=== PATIENT | male | born 1950 | race Caucasian/White ===

== ENCOUNTER 2017-05-02 07:46 | Outpatient (CLI) | payer MEDICARE, BC ==
[~2017-05-02] VITALS: Ht 185.4 cm; Wt 81.8 kg
--- NOTE | ~2017-05-02 | HEMODYNAMI ---
PATIENT:RACIEL MORRISON MEDICAL RECORD: [id number] : 46 LOCATION:[facility] ADMISSION DATE: 05/02/17 Generatedon:05/02/201710:23 Patient name: RACIEL MORRISON Patient #: [id number] SSN: : 1950 Date of study: 05/02/2017 Page: Of Hemodynamic Procedure Report Patient Data Patient Demographics Procedure consent was obtained First Name: RACIEL Gender: Male Last Name: PRINCE : 1950 Patient #: [id number] Age: 66 year(s) Race: Unknown Additional ID: [id number] Contact details [address]: [address] [place] [address] State: [place] City: [place] Zip code: [address] Admission Admission Data Admission Date: 05/02/2017 Admission Time: 7:46 Admit Source: Other Procedure Procedure Types Cath Procedure Diagnostic Procedure LHC LHC w/Coronaries PCI Procedure Coronary Stent Initial Miscellaneous Procedures Moderate Sedation up to 30 minutes Procedure Description Procedure Date Procedure Date: 05/02/2017 Procedure Start Time: 9:59 Procedure End Time: 10:22 Procedure Staff Name Function Venkatesh Yap MD Performing Physician Aleksandar Lara RT Scrub Gloria Simon RN Nurse Ra Morton RT Monitor Procedure Data Cath Procedure Fluoroscopy Diagnostic fluoroscopy Total fluoroscopy Time: 3.5 time: 3.5 min min Diagnostic fluoroscopy Total fluoroscopy dose: 669 dose: 669 mGy mGy Contrast Material Contrast Material Type Amount (ml) Isovue 300 91 Entry Location Entry Primary Successful Side Size Upsize Upsize Entry Closure [place] ccessful Closure Location (Fr) 1 (Fr) 2 (Fr) Remarks Device Remarks Radial Right 5 Fr Mechanical artery Compression Estimated blood loss: 10 ml Diagnostic catheters Device Type Used For End Catheter Placement Diagnostic Terumo 5Fr Procedure [place] 110cm catheter Diagnostic Infinity 5Fr Procedure AR 2 MOD catheter Procedure Complications No complications Procedure Medications Medication Administration Route Dosage Oxygen NC 2 l/min Lidocaine 2% added to field 20 Heparin Flush Bag added to field 2 bags (1000units/500ml NS) 0.9% NaCl I.V. 100 ml/hr Benadryl I.V. 50 mg Versed I.V. 2 mg Fentanyl I.V. 100 mcg Radial Cocktail I.A. 1 syringe (Verapomil 2mg/Nitro 400mcg/Heparin 1500units) Versed I.V. 0.5 mg Fentanyl I.V. 25 mcg Heparin Bolus I.V. 4000 units Hemodynamics Rest Heart Rate: 72 (bpm) Pressure Samples Time Site Value (mmHg) Purpose Heart Use Rate(bpm) 10:07 AO 128/76(99) Snapshot 62 Snapshots Pre Cath Intra NCS Post Cath Vital Signs Time Heart Resp SPO2 etCO2 LE4vdil NIBP (mmHg) Rhythm Pain Sedation Rate (ipm) (%) (mmHg) (mmHg) Status Level (bpm) 9:50:22 61 16 99 0 0 143/91(134) NSR 0 (11) 10(A) , No pain 9:54:39 59 17 100 0 0 134/84(100) NSR 0 (11) 10(A) , No pain 9:58:53 60 16 96 0 0 133/82(99) NSR 0 (11) 9(A) , No pain 10:03:06 63 18 95 0 0 126/76(104) NSR 0 (11) 9(A) , No pain 10:07:17 61 18 95 0 0 120/79(112) NSR 0 (11) 9(A) , No pain 10:11:26 71 15 97 0 0 104/73(84) NSR 0 (11) 9(A) , No pain 10:15:32 63 16 95 0 0 113/70(84) NSR 0 (11) 10(A) , No pain 10:19:40 63 17 94 0 0 114/71(85) NSR 0 (11) 10(A) , No pain Medications Time Medication Route Dose Verified Delivered Reason Note s Effectiveness by by 9:48:46 Oxygen NC 2 l/min Venkatesh Castro used for Marely Simon mason helper 9:48:53 Lidocaine 2% added 20ml Venkatesh Riddle for local to vial Marely Yap MD anesthetic field 9:49:00 Heparin Flush added 2 bags Venkatesh Riddle used for Bag to Marely Yap MD procedure (1000units/500ml field NS) 9:49:09 0.9% NaCl I.V. 100 Venkatesh Castro Per physician ml/hr Marely Simon RN 9:49:18 Benadryl I.V. 50 mg Venkatesh Castro used for Marely Simon RN procedure 9:54:12 Versed I.V. 2 mg Venkatesh Castro for sedation Marely Simon RN 9:54:18 Fentanyl I.V. 100 mcg Venkatesh Castro for sedation Marely Simon RN 10:07:07 Versed I.V. 0.5 mg Venkatesh Castro for sedation Marely Simon RN 10:07:11 Fentanyl I.V. 25 mcg Venkatesh Castro for sedation Marely Simon RN 10:07:16 Radial Cocktail I.A. 1 Venkatesh Riddle for (Verapomil syringe Marely Yap MD vasodilation 2mg/Nitro 400mcg/Heparin 1500units) 10:12:04 Heparin Bolus I.V. 4000 Venkatesh Castro for veri fied units Marely Simon RN anticoagulation with dr yap Procedure Log Time Note 9:20:18 Gloria Simon RN sent for patient. Start room use. 9:34:48 Informed consent obtained and on chart 9:34:54 Admit Source: Other 9:34:57 Time tracking: Regular hours 9:35:03 Plan of Care:Hemodynamics will remain stable., Cardiac rhythm will remain stable., Comfort level will be maintained., Respiratory function will remain adequate., Patient/ family verbilizes understanding of procedure., Procedure tolerated without complication., Recovers from procedure without complications.. 9:35:31 H&P Date Dictated: 04/09/2017 Within 30 days and on chart., H&P Addendum completed by physician on day of procedure. (MUST COMPLETE FOR ALL OUTPATIENTS). 9:39:10 Patient received from Pre/Post Procedure Room to CCL 1 Alert and oriented. Tansferred to table in Supine position. 9:39:11 Warm blankets applied, and aicha hugger turned on for patient comfort. 9:39:15 Correct patient and procedure confirmed by team. 9:39:15 ECG and BP/O2 sat monitors applied to patient. 9:39:17 Pre-procedure instructions explained to patient. 9:39:18 Pre-op teaching completed and patient verbalized understanding. 9:39:19 Family in waiting room. 9:39:21 Patient NPO since Midnight. 9:48:46 Oxygen 2 l/min NC was administered by Gloria Simon RN; used for procedure; 9:48:53 Lidocaine 2% 20ml vial added to field was administered by Venkatesh Yap MD; for local anesthetic; 9:49:00 Heparin Flush Bag (1000units/500ml NS) 2 bags added to field was administered by Venkatesh Yap MD; used for procedure; 9:49:09 0.9% NaCl 100 ml/hr I.V. was administered by Gloria Simon RN; Per physician; 9:49:18 Benadryl 50 mg I.V. was administered by Gloria Simon RN; used for procedure; 9:49:22 Vital chart was started 9:52:33 Baseline sample Acquired. 9:52:38 Rhythm: sinus rhythm 9:52:39 Full Disclosure recording started 9:52:43 Is the patient allergic to Iodine/contrast media? No. 9:52:47 Is patient on blood thinner?Yes 9:52:49 ACC The patient was administered the following blood thiners within the last 24 hours: ACCPlavix 9:52:53 Patient diabetic? No. 9:52:56 Previous problem with sedation/anesthesia? No ? 9:52:59 Snore? Yes 9:53:00 Sleep apnea? No 9:53:01 Deviated septum? No 9:53:02 Opens mouth fully? Yes 9:53:03 Sticks out tongue? Yes 9:53:05 Airway obstruction? No ? 9:53:06 Dentures? No ? 9:53:08 Pre procedure: right dorsailis pedis pulse 1+ Palpable, but thready & weak; easily obliterated 9:53:10 Modified Kev's test Ulnar < 7 seconds 9:53:13 Patient pain scale 0/10 ?. 9:53:20 IV patent on arrival in left forearm with 0.9% NaCl at [facility]. 9:53:22 Lab results completed and on chart. 9:53:24 Right Radial & Right Groin area was prepped with chlora-prep and draped in sterile fashion 9:53:26 Alarms reviewed by R. N. 9:53:27 Sharps counted by scrub and verified by RDeng 9:53:29 --------ALL STOP TIME OUT------ 9:53:30 Final Timeout: patient, procedure, and site verified with staff and physician. All members of the team are in agreement. 9:53:34 Right Radial & Right Groin site verified by team. 9:53:36 Physical assessment completed. ASA score P 2 - A patient with mild systemic disease as per Venkatesh Yap MD. 9:53:39 Sedation plan: IV Moderate Sedation Versed, Fentanyl 9:54:12 Versed 2 mg I.V. was administered by Gloria Simon RN; for sedation; 9:54:18 Fentanyl 100 mcg I.V. was administered by Gloria Simon RN; for sedation; 9:56:28 Use device set Radial Dx 9:56:30 Tegaderm 4 x 4 opened to sterile field. 9:56:31 Acist Manifold opened to sterile field. 9:56:32 Acist Hand Control opened to sterile field. 9:56:33 Acist Syringe opened to sterile field. 9:56:33 Medline Cath Pack opened to sterile field. 9:56:33 Bag Decanter opened to sterile field. 9:56:34 Terumo 6Fr Slender Glidesheath opened to sterile field. 9:56:34 St Ruiz 260cm J .035 wire opened to sterile field. 9:56:34 MBrace Wrist Support opened to sterile field. 9:59:26 Procedure started. 9:59:30 Local anesthetic to right radial artery with Lidocaine 2% by Venkatesh Yap MD.INITIAL ACCESS ONLY 10:06:17 A 5 Fr sheath was inserted into the Right Radial artery 10:06:31 A Diagnostic Terumo 5Fr [place] 110cm catheter was advanced over the wire and used for Procedure. 10:07:05 LV angiography performed. 10:07:06 LV gram done using PECK 10:07:07 Versed 0.5 mg I.V. was administered by Gloria Simon RN; for sedation; 10:07:11 Fentanyl 25 mcg I.V. was administered by Gloria Simon RN; for sedation; 10:07:16 Radial Cocktail (Verapomil 2mg/Nitro 400mcg/Heparin 1500units) 1 syringe I.A. was administered by Venkatesh Yap MD; for vasodilation; 10:07:16 EF : 55 % 10:07:24 Injector settings: Ml/sec: 7, Volume: 15, 10:07:30 LCA angiography performed. 10:09:09 [employer] BasixCompak Inflation Kit opened to sterile field. 10:09:10 Ochoa Whisper J 300cm 0.014 guide wire opened to sterile field. 10:09:15 Catheter exchanged over wire. 10:09:26 A Diagnostic Infinity 5Fr AR 2 MOD catheter was advanced over the wire and used for Procedure. 10:10:45 RCA angiography performed. 10:10:56 Catheter exchanged over wire. 10:11:11 Medtronic Launcher 6Fr AR 2.0 guide catheter opened to sterile field. 10:11:26 6 Fr AR 2 guide catheter was inserted over the wire 10:11:45 Study PCI Site: [place] dRCA has 70% stenosis. 10:11:48 ACC Pre-intervention RANJEET Flow is 3. 10:12:04 Heparin Bolus 4000 units I.V. was administered by Gloria Simon RN; for anticoagulation; verified with dr yap 10:13:07 Whisper wire advanced. 10:14:45 Wire advanced across lesion. 10:15:20 Inflation Number: 1 A [facility] Integr[facility] 4.0 X 18 stent was prepped and advanced across the Dist RCA. The stent was deployed at 13 PAPA for 0:10 (min:sec). 10:15:35 ACC Post-intervention RANJEET Flow is 3. 10:15:37 Stent catheter was removed intact over wire. 10:15:38 Wire removed. 10:15:38 Guide catheter removed. 10:15:55 Terumo TR Band Standard opened to sterile field. 10:16:15 Sheath removed intact; hemostasis achieved with Mechanical Compression to the Right Radial artery. 10:16:17 Procedure ended.(Physican Out) 10:16:40 Fluoroscopy time 03.50 minutes. 10:16:44 Fluoroscopy dose: 669 mGy 10:16:44 Flurop Dose total: 669 10:16:50 Contrast amount:Isovue 300 91ml. 10:16:51 Sharps counted by scrub and verified by R.N. 10:16:55 TR band inflated with 12cc of air. 10:16:56 Insertion/operative site no bleeding no hematoma. 10:16:59 Post Procedure Pulses reassessed and unchanged 10:17:01 Post-procedure physical assessment completed. ASA score P 2 - A patient with mild systemic disease as per Venkatesh Yap MD. 10:17:04 Post procedure rhythm: unchanged. 10:17:06 Estimated blood loss: 10 ml 10:17:08 Post procedure instruction explained to patient.Patient verbalizes understanding. 10:17:09 Patient needs reinforcement of post procedure teaching. 10:17:16 Procedure type changed to Cath procedure, Diagnostic procedure, LHC, LHC w/Coronaries, PCI procedure, Coronary Stent Initial, Miscellaneous Procedures, Moderate Sedation up to 30 minutes 10:17:27 Procedure Complication : No complications 10:22:14 Procedure and supply charges have been captured, reviewed, submitted and are correct. 10:22:14 Vital chart was stopped 10:22:15 See physician's report for complete and final results. 10:22:17 Report given to Pre/Post Procedure Room. 10:22:21 Patient transfered to Pre/Post Procedure Room with Stretcher. 10:22:23 Procedure ended. 10:22:23 Full Disclosure recording stopped 10:22:27 End room use (Document Last) Intervention Summary Intervention Notes Time ActionType Lesion and Equipment Action# Pressure Duration Attributes Used 10:15:20 Place stent Dist RCA Medtronic 1 13 00:10 Integrity 4.0 X 18 stent Device Usage Item Name Manufacture Quantity Catalog Hospital Part Current Minimal Lot# / Number Charge Number Stock Stock Serial# Code Tegaderm 4 3M 1 [id number] 723928 265464 5 x 4 Acist Acist 1 82304 753897 276979 187913 5 Manifold [employer] Inc Acist Hand Acist 1 77765 613648 110583 134478 5 Control Medical Systems Inc Acist Acist 1 52401 866181 440057 528141 20 Syringe Medical Systems Inc Medline Cardinal 1 [id number] 312227 40931 122559 5 Cath Pack Health Bag Microtek 1 2001S 589132 99243 959494 5 [employer] Terumo 6Fr Terumo 1 [id number] 822474 169308 204674 [address] St Ruiz 1 945936 127353 403026 346401 30 260cm J .035 wire MBrace Advanced 1 [id number] 059743 08797 740540 5 Wrist Vascular Support Dynamics Diagnostic Terumo 1 47-8321 675068 504257 996031 5 Terumo 5Fr [place] 110cm catheter Merit Merit 1 [id number] 163591 394978 017006 15 BasixCompak Medical Inflation Kit Ochoa Ochoa 1 [id number] 793915 158590 272427 5 Whisper J Vascular 300cm 0.014 guide wire Diagnostic Cardinal 1 [id number] 067663 142248 342421 20 Infinity [employer] 5Fr AR 2 MOD catheter Medtronic Medtronic 1 [id number] 330960 69583 882701 1 Launcher 6Fr AR 2.0 guide catheter Medtronic Medtronic 1 [id number] 842864 752015 2 [id number] Integrity 4.0 X 18 stent Terumo TR Terumo 1 [id number] 011635 702908 293663 40 Band Standard Signature Audit [place] Stage Time Signature Unsigned Intra-Procedure 05/02/2017 Ra Morton 10:23:06 AM RT(R) Signatures Monitor : Ra Morton RT Signature : Date : Time : [id number] [place] [address]
[~2017-05-02 07:46] MED LIST: BAYER CHEWABLE81 MG PO; HYTRIN5 MG PO; PLAVIX75 MG PO; PRAVACHOL40 MG PO; PRINIVIL20 MG PO; WELLBUTRIN75 MG PO; ZIAC 5/6.25 MG1 TAB PO
[2017-05-02] MEDS ORDERED: TOPROL XL50 MG PO (07:58)
[2017-05-02 08:05] VITALS: BP 132/80; Ht 185.4 cm; Wt 81.8 kg
[2017-05-02 08:29] LABS: ANION GAP 10.3 mmol/L (8-16); CALCIUM 8.5 mg/dL (8.5-10.1); CARBON DIOXIDE 28.2 mmol/L (21.0-32.0); CREATININE - SERUM 1.2 mg/dL (0.6-1.3); POTASSIUM - SERUM 3.5 mmol/L (3.5-5.1)
[2017-05-02 08:52] LABS: BASOPHILS 0.4 % (0-2); EOSINOPHILS 2.1 % (0-7); HEMATOCRIT 42.7 % (42.0-54.0); HEMOGLOBIN 14.7 g/dL (13.5-17.5); LYMPHOCYTES 15.2 % (15-50); MCH 29.2 pg (26.0-34.0); MCHC 34.4 g/dL (31.0-37.0); MCV 84.7 fL (80.0-100.0); MEAN PLATELET VOLUME 10.8 fL (7.4-10.4); MONOCYTES 8.4 % (2-11); NEUTROPHILS 73.9 % (40-80); PLATELET COUNT 137 10x3/uL (130-400); RBC 5.04 10x6/uL (4.20-6.10); RDW 12.6 % (11.5-14.5); WBC 4.7 10x3/uL (4.8-10.8)
--- NOTE | 2017-05-02 10:50 | NUR ---
2L NC, NO RESP DISTRESS. RIGHT WRIST TR BAND IN PLACE, NO BLEEDING OR HEMATOMA NOTED. SB @ 58 ON MONITOR. NO C/O CHEST PAIN OR NAUSEA. SPEAKING WITH FAMILY AT BEDSIDE. CALL LIGHT WITHIN REACH.
--- NOTE | 2017-05-02 11:20 | NUR ---
2L NC, NO RESP DISTRESS NOTED. RIGHT WRIST TR BAND CDI, NO BLEEDING OR HEMATOMA NOTED. NO C/O CHEST PAIN OR NAUSEA. VSS. WILL CONTINUE TO MONITOR.
--- NOTE | 2017-05-02 12:00 | NUR ---
1200 RR EVEN AND UNLABORED ON O2 AT 2 LPM VIA NC. TR BAND IS CDI, NO BLEEDING OR HEMATOMA NOTED. PT DENIES ANY C/O CHEST PAIN; VSS. AT BEDSIDE. CALL LIGHT IN REACH.
--- NOTE | 2017-05-02 12:30 | NUR ---
ROOM AIR, NO RESP DISTRESS NOTED. VSS. RIGHT WRIST TR BAND CDI, NO BLEEDING OR HEMATOMA NOTED. VSS. CALL LIGHT WITHIN REACH.
--- NOTE | 2017-05-02 13:21 | NUR ---
2CC OF AIR REMOVED FROM TR BAND, NO BLEEDING NOTED. VSS. NO C/O AT THIS TIME.
--- NOTE | 2017-05-02 13:38 | NUR ---
3CC OF AIR REMOVED FROM TR BAND, NO BLEEDING NOTED.
--- NOTE | 2017-05-02 14:00 | NUR ---
2CC OF AIR REMOVED FROM TR BAND, NO BLEEDING NOTED.
--- NOTE | 2017-05-02 14:11 | NUR ---
LEFT HAND PIV D/C'D WITH CATHETER INTACT, BAND AID TO SITE. UP TO BEDSIDE TO GET DRESSED.
--- NOTE | 2017-05-02 14:27 | NUR ---
REMAINING AIR REMOVED FROM TR BAND, DRESSING TO SITE. DISCHARGE INSTRUCTIONS GIVEN, VERBALIZED UNDERSTANDING.
--- NOTE | 2017-05-02 14:35 | NUR ---
TAKEN OUT VIA WHEELCHAIR BY CATH CLINICAL STAFF PHARMACIST. LEFT FACILITY WITH AND ALL PERSONAL BELONGINGS.
--- NOTE | 2017-05-09 09:42 | OP ---
PATIENT NAME: RACIEL MORRISON MEDICAL RECORD: [id number] :46 LOCATION:[facility] ADMISSION DATE: SURGEON: LOLITA WALKER MD DATE OF OPERATION: 05/02/2017 PROCEDURES: 1. PTCA stent RCA. 2. Left heart catheterization. 3. Selective coronary angiography. 4. Left ventriculogram. INDICATION: Angina and coronary artery disease. PROCEDURE IN DETAIL: After informed consent was obtained and after detailed explanation of risks, benefits as well as alternative therapies, the patient elected to proceed with angiogram and angioplasty. The right radial area was prepped and draped in normal sterile fashion. The right radial artery was cannulated via modified Seldinger technique with placement of 6-Mongolian sheath. All catheters exchanged through this sheath. FINDINGS: The left ventriculogram was performed in standard 30-degree PECK view, reveals good cardiac wall motion throughout all segments. Overall ejection fraction estimated 60%. SELECTIVE CORONARY ANGIOGRAPHY: 1. Left main is with no significant angiographic disease. 2. Left anterior descending has moderate irregularities, but no flow-limiting stenosis. 3. The left circumflex has a previously placed stent. This is widely patent. This takes off the bifurcation of the first obtuse marginal. First obtuse marginal is 80% stenosis at the site of the previously placed stent. 4. Right coronary is large dominant structure with 70+ percent stenosis distally. PTCA STENT OF THE RIGHT CORONARY: The stent used was 4.0 x 18 mm Integrity. Result was 0% residual stenosis. OVERALL IMPRESSION: Successful percutaneous transluminal coronary angioplasty stent of the right coronary artery going from 70+ percent initial stenosis to 0% residual stenosis. If any further angina persists, would proceed with transcatheter revascularization of the first obtuse marginal. TRANSINT:[id number] Voice Confirmation ID: [id number] DOCUMENT ID: [id number] LOLITA WALKER MD at 0942 CC: [id number] DICTATION DATE: 05/02/17 1020 PRODUCTION COST ESTIMATOR: 05/02/17 1451 DEP CLI 05/02/17 [address] [place] [address]
== END 2017-05-02 14:35 | disposition home or self-care (01) ==
LOC: D.CATH 07:46
PROVIDERS: Internal Medicine Interventional Cardiology
DX: I25.10 Atherosclerotic heart disease of native coronary artery without angina pectoris (principal); R94.30 Abnormal result of cardiovascular function study, unspecified; I10 Essential (primary) hypertension; R00.1 Bradycardia, unspecified; Z01.812 Encounter for preprocedural laboratory examination

== ENCOUNTER 2017-05-26 09:33 | Emergency (ER) | payer MEDICARE, BC ==
[2017-05-02 08:05] VITALS: BMI 23.8
[~2017-05-26 09:33] MED LIST changes: +TOPROL XL50 MG PO
== END 2017-05-26 10:47 | disposition home or self-care (01) ==
LOC: D.ER 09:33
DX: R51 Headache (principal); I10 Essential (primary) hypertension

== ENCOUNTER → 2017-07-30 17:15 | Outpatient (CLI) | payer MEDICARE, BC ==
[2017-05-02 08:05] VITALS: BMI 23.8
[2017-07-30 19:42] LABS: CHOL - HDL RATIO 2.3 ratio (2.3-4.9); LDL-HDL RATIO 1.1 ratio (1.5-3.5)
== END | disposition home or self-care (01) ==
LOC: D.LABREF 17:15
PROVIDERS: Internal Medicine Interventional Cardiology
DX: E78.5 Hyperlipidemia, unspecified (principal)

== ENCOUNTER → 2018-04-09 16:48 | Outpatient (CLI) | payer MEDICARE, BC ==
[2017-05-02 08:05] VITALS: BMI 23.8
[~2018-04-09 16:48] MED LIST changes: +BUPROPION XL300 MG PO; +INDERAL LA80 MG PO; +LEVAQUIN250 MG PO; +LOSARTAN POTASS25 MG PO; +NORCO-7.5 PO; -WELLBUTRIN75 MG PO
[2018-04-09 17:22] LABS: CHOL - HDL RATIO 4.5 ratio (2.3-4.9); LDL-HDL RATIO 3.1 ratio (1.5-3.5)
== END | disposition home or self-care (01) ==
LOC: D.LABREF 16:48
PROVIDERS: Internal Medicine Interventional Cardiology
DX: E78.5 Hyperlipidemia, unspecified (principal)

== ENCOUNTER 2018-05-04 07:25 | Outpatient (CLI) | payer MEDICARE, BC ==
[~2018-05-04] VITALS: Ht 185.4 cm; Wt 84.1 kg
--- NOTE | ~2018-05-04 | HEMODYNAMI ---
PATIENT:RACIEL MORRISON MEDICAL RECORD: [id number] : 46 LOCATION:D.CAT ADMISSION DATE: 05/04/18 Generatedon:05/04/20189:58 Patient name: RACIEL MORRISON Patient #: [id number] SSN: : 1950 Date of study: 05/04/2018 Page: Of Hemodynamic Procedure Report Patient Data Patient Demographics Procedure consent was obtained First Name: RACIEL Gender: Male Last Name: PRINCE : 1950 Patient #: [id number] Age: 67 year(s) Race: Unknown Additional ID: [id number] Contact details [address]: [address] [place] [address] State: [place] City: [place] Zip code: [address] Past Medical History Allergies: No known allergies Admission Admission Data Admission Date: 05/04/2018 Admission Time: 7:25 Admit Source: Other Height (in.): 73 BSA: 2.08 (m2) Height (cm.): 185.42 BMI: 24.43 (kg/m2) Weight (lbs.): 185.19 Weight (kg.): 84 Lab Results Lab Result Date: 05/04/2018 Lab Result Time: 7:45 Biochemistry Name Units Result Min Max BUN mg/dl 21 --(----)-* 7 18 Creatinine mg/dl 1 --(--*-)-- 0.6 1.3 CBC Name Units Result Min Max Hematocrit % 40.2 -*(----)-- 42 54 Hemoglobin g/dl 14.3 --(*---)-- 13.5 17.5 Procedure Procedure Types Cath Procedure Diagnostic Procedure [facility] w/Coronaries FFR/IVUS Intra-Coronary IVUS Initial Sedation Charges Moderate Sedation up to 15 minutes PCI Procedure Coronary Stent Coronary Stent Initial Procedure Description Procedure Date Procedure Date: 05/04/2018 Procedure Start Time: 9:34 Procedure End Time: 9:57 Procedure Staff Name Function Venkatesh Yap MD Performing Physician Aleksandar Lara RT Monitor Ruthie Gomez RT Scrub Claudio Collazo RN Nurse Procedure Data Cath Procedure Fluoroscopy Diagnostic fluoroscopy Total fluoroscopy Time: 6.3 time: 6.3 min min Diagnostic fluoroscopy Total fluoroscopy dose: dose: 338.09 mGy 338.09 mGy Contrast Material Contrast Material Type Amount (ml) Isovue 300 117 Entry Location Entry Primary Successful Side Size Upsize Upsize Entry Closure [place] ccessful Closure Location (Fr) 1 (Fr) 2 (Fr) Remarks Device Remarks Radial Right 6 Fr Mechanical artery Short Compression Estimated blood loss: 10 ml Diagnostic catheters Device Type Used For End Catheter Placement DIAGNOSTIC [place] 110cm 5 Procedure Fr catheter ([id number]) DIAGNOSTIC AR 2 MOD 5 Fr Procedure catheter ([id number]) Procedure Complications No complications Procedure Medications Medication Administration Route Dosage 0.9% NaCl I.V. 100 ml/hr Oxygen etCO2 Nasal cannula 2 l/min Heparin Flush Bag added to field 2 bags (1000units/500ml NS) Lidocaine 2% added to field 20 Radial Cocktail added to field 1 syringe (Verapomil 2mg/Nitro 400mcg/Heparin 1500units) Versed I.V. 1 mg Fentanyl I.V. 50 mcg Radial Cocktail I.A. 1 syringe (Verapomil 2mg/Nitro 400mcg/Heparin 1500units) Versed I.V. 1 mg Fentanyl I.V. 50 mcg Heparin Bolus I.V. 4000 units Hemodynamics Rest BSA: 2.08 (m2) HGB: 14.3 (g/dl) O2 Consumption: Estimated: 231.16 (ml/min) O2 Co nsumption indexed: Estimated:111.13 (ml/min/m) Heart Rate: 58 (bpm) Snapshots Pre Cath Intra NCS Post Cath Vital Signs Time Heart Resp SPO2 etCO2 NIBP Rhythm Pain Sedation Rate (ipm) (%) (mmHg) (mmHg) Status Level (bpm) 9:11:47 57 15 93 0 114/73(89) NSR 0 (11) 10(A) , No pain 9:16:00 55 19 92 0 107/72(85) NSR 0 (11) 10(A) , No pain 9:20:11 58 14 92 0 103/71(88) NSR 0 (11) 10(A) , No pain 9:24:20 56 15 92 0 111/71(84) NSR 0 (11) 10(A) , No pain 9:28:28 64 14 94 28.6 113/71(89) NSR 0 (11) 9(A) , No pain 9:32:40 55 12 98 39.8 109/69(85) NSR 0 (11) 9(A) , No pain 9:36:54 81 12 98 0 105/61(74) NSR 0 (11) 9(A) , No pain 9:39:32 66 14 92 38.4 97/60(69) NSR 0 (11) 10(A) , No pain 9:43:39 61 14 92 37.6 102/64(79) NSR 0 (11) 10(A) , No pain 9:47:51 60 15 92 38.4 103/62(86) NSR 0 (11) 10(A) , No pain 9:52:01 57 16 96 39.1 106/65(77) NSR 0 (11) 10(A) , No pain 9:56:11 55 12 97 36.9 102/63(82) NSR 0 (11) 10(A) , No pain Medications Time Medication Route Dose Verified Delivered Reason Note s Effectiveness by by 9:09:15 0.9% NaCl I.V. 100 Claudio Claudio Per physician ml/hr Zay Collazo RN 9:09:26 Oxygen etCO2 2 l/min Claudio Claudio Per physician Nasal Zay Collazo cannula RN 9:09:38 Heparin Flush added 2 bags Claudio Claudio used for Bag to Lorigan Zay procedure (1000units/500ml [facility] RN NS) 9:10:13 Lidocaine 2% added 20ml Claudio Claudio used for to vial Lorigan Lorigan procedure [facility] RN 9:10:34 Radial Cocktail added 1 Claudio Claudio used for (Verapomil to syringe Lorigan Lorigan procedure 2mg/Nitro [facility] RN 400mcg/Heparin 1500units) 9:30:39 Versed I.V. 1 mg Claudio Claudio for sedation Zay Collazo RN 9:30:49 Fentanyl I.V. 50 mcg Claudio Claudio for sedation Zay Collazo RN 9:35:23 Radial Cocktail I.A. 1 Claudiomichele Riddle for (Verapomil syringe Lorigan Tauth MD vasodilation 2mg/Nitro 400mcg/Heparin 1500units) 9:43:07 Versed I.V. 1 mg Claudio Claudio for sedation Zay Collazo RN 9:43:16 Fentanyl I.V. 50 mcg Claudio Claudio for sedation Zay Collazo RN 9:47:31 Heparin Bolus I.V. 4000 Claudio Claudio for units Zay Collazo anticoagulation wardrobe specialist Log Time Note 8:28:48 Informed consent obtained and on chart 8:28:51 Admit Source: Other 8:29:09 Diagnostic Cath status Elective 8:29:10 Time tracking: Regular hours (M-F 7:00 - 5:00) 8:29:14 Plan of Care:Hemodynamics will remain stable., Cardiac rhythm will remain stable., Comfort level will be maintained., Respiratory function will remain adequate., Patient/ family verbilizes understanding of procedure., Procedure tolerated without complication., Recovers from procedure without complications.. 8:29:28 H&P Date Dictated: 04/09/2018 Within 30 days and on chart., H&P Addendum completed by physician on day of procedure. (MUST COMPLETE FOR ALL OUTPATIENTS). 8:30:11 Lab Result : BUN 21 mg/dl 8:30:11 Lab Result : Creatinine 1 mg/dl 8:30:11 Lab Result : Hematocrit 40.2 % 8:30:11 Lab Result : Hemoglobin 14.3 g/dl 8:30:13 Lab results completed and on chart. 8:30:26 Patient Weight : 185.19 lbs 8:30:29 Patient Height : 73 inches 8:37:53 Patient allergic to No known allergies 8:47:27 Aleksandar Lara RT(R) sent for patient. Start room use. 8:55:15 Patient received from Pre/Post Procedure Room to CCL 3 Alert and oriented. Tansferred to table in Supine position. 8:55:16 Warm blankets applied, and aicha hugger turned on for patient comfort. 8:55:17 Correct patient and procedure confirmed by team. 8:55:17 ECG and BP/O2 sat monitors applied to patient. 8:55:18 Pre-procedure instructions explained to patient. 8:55:19 Pre-op teaching completed and patient verbalized understanding. 8:55:20 Family in waiting room. 8:55:21 Patient NPO since Midnight. 9:09:15 0.9% NaCl 100 ml/hr I.V. was administered by Claudio Collazo RN; Per physician; 9:09:26 Oxygen 2 l/min etCO2 Nasal cannula was administered by Claudio Collazo RN; Per physician; 9:09:38 Heparin Flush Bag (1000units/500ml NS) 2 bags added to field was administered by Claudio Collazo RN; used for procedure; 9:10:13 Lidocaine 2% 20ml vial added to field was administered by Claudio Collazo RN; used for procedure; 9:10:34 Radial Cocktail (Verapomil 2mg/Nitro 400mcg/Heparin 1500units) 1 syringe added to field was administered by Claudio Collazo RN; used for procedure; 9:10:40 Vital chart was started 9:19:52 Baseline sample Acquired. 9:19:59 Rhythm: sinus bradycardia 9:20:05 Full Disclosure recording started 9:20:07 Is the patient allergic to Iodine/contrast media? No. 9:20:09 Is patient on blood thinner?Yes 9:20:12 ACC The patient was administered the following blood thiners within the last 24 hours: ACCPlavix 9:20:13 Patient diabetic? No. 9:20:16 Previous problem with sedation/anesthesia? No ? 9:20:17 Snore? Yes 9:20:18 Sleep apnea? No 9:20:18 Deviated septum? No 9:20:19 Opens mouth fully? Yes 9:20:20 Sticks out tongue? Yes 9:20:22 Airway obstruction? No ? 9:20:24 Dentures? No ? 9:20:26 Modified Kev's test Ulnar < 7 seconds 9:20:28 Patient pain scale 0/10 ?. 9:20:32 IV patent on arrival in left forearm with 0.9% NaCl at [facility]. 9:20:36 Right Radial & Right Groin area was prepped with chlora-prep and draped in sterile fashion 9:20:37 Alarms reviewed by R. N. 9:20:37 Sharps counted by scrub and verified by R.N. 9:20:40 Use device set Radial Dx or PCI 9:20:41 ACIST Syringe (11901) opened to sterile field. 9:20:41 Medline Cath Pack ([id number]) opened to sterile field. 9:20:42 Bag Decanter (2001S) opened to sterile field. 9:20:43 ACIST Hand Control (39285) opened to sterile field. 9:20:43 ACIST Manifold (89575) opened to sterile field. 9:20:44 Tegaderm 4 x 4 (1626W) opened to sterile field. 9:20:45 MBrace Wrist Support ([id number]) opened to sterile field. 9:20:46 DIAGNOSTIC WIRE .035 260cm J wire (559061) opened to sterile field. 9:20:47 SHEATH 6Fr Prelude Radial ([id number]) opened to sterile field. 9:20:56 CHOICE PT Extra Support 182cm wire ([id number]) opened to sterile field. 9:20:56 INFLATOR Merit BasixCompak (OI8026) opened to sterile field. 9:23:53 Zero performed for pressure channel P1 9:24:17 Physician paged 9:29:18 Physician arrived 9:29:18 --------ALL STOP TIME OUT------ 9:29:19 Final Timeout: patient, procedure, and site verified with staff and physician. All members of the team are in agreement. 9:29:20 Right Radial & Right Groin site verified by team. 9:29:23 Physical assessment completed. ASA score P 2 - A patient with mild systemic disease as per Venkatesh Yap MD. 9:29:26 Sedation plan: IV Moderate Sedation Medication:Versed, Fentanyl 9:30:39 Versed 1 mg I.V. was administered by Claudio Collazo RN; for sedation; 9:30:49 Fentanyl 50 mcg I.V. was administered by Claudio Collazo RN; for sedation; 9:34:08 Procedure started. 9:34:15 Local anesthetic to right radial artery with Lidocaine 2% by Venkatesh Yap MD.INITIAL ACCESS ONLY 9:34:22 A 6 Fr Short sheath was inserted into the Right Radial artery 9:35:23 Radial Cocktail (Verapomil 2mg/Nitro 400mcg/Heparin 1500units) 1 syringe I.A. was administered by Venkatesh Yap MD; for vasodilation; 9:36:34 A DIAGNOSTIC [place] 110cm 5 Fr catheter (204680) was advanced over the wire and used for Procedure. 9:37:12 LV gram done using PECK 9:37:14 Injector settings: Ml/sec: 5, Volume: 15, 9:37:25 EF : 55 % 9:37:29 LCA angiography performed. 9:39:10 Catheter exchanged over wire. 9:39:18 A DIAGNOSTIC AR 2 MOD 5 Fr catheter ([id number]) was advanced over the wire and used for Procedure. 9:40:13 Jackson Chicken [place]ag[place] IVUS Catheter (69618F) opened to sterile field. 9:40:30 RCA angiography performed. 9:41:03 Catheter exchanged over wire. 9:42:27 GUIDE 6FR XBLAD 3.5 SH catheter ([id number]) opened to sterile field. 9:42:35 6 Fr xblad 3.5 guide catheter was inserted over the wire 9:43:07 Versed 1 mg I.V. was administered by Claudio Collazo RN; for sedation; 9:43:08 choice pt es wire advanced. 9:43:16 Fentanyl 50 mcg I.V. was administered by Claudio Collazo RN; for sedation; 9:44:05 Wire advanced across lesion. 9:44:08 IVUS catheter advanced over wire. 9:45:49 IVUS pass to LAD lesion performed. 9:45:50 IVUS catheter removed over wire. 9:45:55 Wire removed. 9:45:58 Guide catheter removed. 9:46:07 GUIDE 6FR AR 2.0 catheter ([id number]) opened to sterile field. 9:46:14 6 Fr ar 2 guide catheter was inserted over the wire 9:47:31 Heparin Bolus 4000 units I.V. was administered by Claudio Collazo RN; for anticoagulation; 9:47:32 choice pt es wire advanced. 9:47:33 Wire advanced across lesion. 9:49:45 IVUS catheter advanced over wire. 9:49:47 IVUS pass to RCA lesion performed. 9:49:48 IVUS catheter removed over wire. 9:51:08 Place stent Inflation Number: 1 A INTEGRITY RX 4.0 x 15 stent ([id number]) was prepped and advanced across the Mid RCA. The stent was deployed at 21 PAPA for 0:10 (min:sec). 9:51:45 Stent catheter was removed intact over wire. 9:51:46 Wire removed. 9:51:47 Guide catheter removed. 9:52:11 TR BAND Standard ([id number]) opened to sterile field. 9:52:19 Sheath removed intact; hemostasis achieved with Mechanical Compression to the Right Radial artery. 9:52:20 Procedure ended.(Physican Out) 9:52:25 Fluoroscopy time 06.30 minutes. 9:52:31 Flurop Dose total: 338.09 9:52:31 Fluoroscopy dose: 338.09 mGy 9:52:35 Contrast amount:Isovue 300 117ml. 9:52:36 Sharps counted by scrub and verified by R.N. 9:52:38 TR band inflated with 10cc of air. 9:52:39 Insertion/operative site no bleeding no hematoma. 9:55:06 Post right radial artery:stable, soft, clean and dry 9:55:07 Post Procedure Pulses reassessed and unchanged 9:55:09 Post procedure rhythm: unchanged. 9:55:10 Estimated blood loss: 10 ml 9:55:11 Post procedure instruction explained to patient.Patient verbalizes understanding. 9:55:12 Patient needs reinforcement of post procedure teaching. 9:55:32 Procedure type changed to Cath procedure, Diagnostic procedure, LHC, LHC w/Coronaries, FFR/IVUS, Intra-Coronary IVUS Initial, Sedation Charges, Moderate Sedation up to 15 minutes, PCI procedure, Coronary Stent, Coronary Stent Initial 9:57:10 Procedure and supply charges have been captured, reviewed, submitted and are correct. 9:57:12 Procedure Complication : No complications 9:57:15 Vital chart was stopped 9:57:15 See physician's report for complete and final results. 9:57:20 Report given to Pre/Post Procedure Room. 9:57:22 Report given to Pre/Post Procedure Room. 9:57:25 Patient transfered to Pre/Post Procedure Room with Stretcher. 9:57:27 Procedure ended. 9:57:27 Full Disclosure recording stopped 9:57:30 End room use (Document Last) Intervention Summary Intervention Notes Time ActionType Lesion and Equipment Action# Pressure Duration Attributes Used 9:51:08 Place stent Mid RCA INTEGRITY RX 1 21 00:10 4.0 x 15 stent ([id number]) Device Usage Item Name Manufacture Quantity Catalog Number Hospital Part Current M inimal Lot# / Charge Number Stock Stock Serial# Code ACIST Syringe Acist 1 86733 555865 862941 243830 2 0 (55002) Medical Systems Inc Medline Cath Cardinal 1 [id number] 051215 56147 383940 5 Pack Health ([id number]) Bag Decanter Microtek 1 2001S 001754 50283 562372 5 (2001S) Medical Inc. ACIST Hand Acist 1 53025 429806 908776 186839 5 Control (78884) Medical Systems Inc ACIST Manifold Acist 1 22514 387277 158341 472863 5 (33013) Medical Systems Inc Tegaderm 4 x 4 3M 1 1626W 182617 545482 941250 5 (1626W) MBrace Wrist Advanced 1 140-0250-00 846236 13119 181577 5 Support Vascular (245152712) Dynamics DIAGNOSTIC WIRE [place] 1 195755 562019 673233 926620 3 0 .035 260cm J wire (676360) SHEATH 6Fr Merit 1 [id number] 334093 332131 731262 5 Prelude Radial Medical ([id number]) CHOICE PT Extra [place] 1 [id number] 383372 682773 923657 5 Support 182cm Scientific wire (3305718I5) INFLATOR Merit Merit 1 BX5158 955502 727821 710842 1 5 Cache IQ Medical (FJ0340) DIAGNOSTIC Terumo 1 40-5050 224789 731212 198010 5 [place] 110cm 5 Fr catheter (154561) DIAGNOSTIC AR 2 Cardinal 1 [id number] 022335 282615 594930 2 0 MOD 5 Fr Health catheter (988931C) Jackson Jackson 1 20656I 077535 839501 789501 8 Chicken [place]ag[place]e IVUS Catheter (69729A) GUIDE 6FR XBLAD Cardinal 1 [id number] 991770 213053 029787 3 3.5 SH catheter Health (77547442) GUIDE 6FR AR Medtronic 1 [id number] 645882 07297 584841 1 2.0 catheter (HV0XA44) INTEGRITY RX Medtronic 1 [id number] 632131 641724 352671 5 [id number] 4.0 x 15 stent ([id number]) TR BAND Terumo 1 [id number] 646244 213980 223369 4 0 Standard ([id number]) Signature Audit [place] Stage Time Signature Unsigned Intra-Procedure 05/04/2018 Aleksandar Lara 9:58:28 AM RT(R) Signatures Monitor : Aleksandar Lara RT Signature : Date : Time : [place] [id number] [place] [address]
--- NOTE | ~2018-05-04 | OP ---
PATIENT NAME: RACIEL MORRISON MEDICAL RECORD: [id number] :46 LOCATION:D.CAT ADMISSION DATE: SURGEON: LOLITA WALKER MD DATE OF OPERATION: 05/04/2018 PROCEDURES: 1. PTCA stent RCA. 2. Intravascular ultrasound RCA and LAD. 3. Left heart catheterization. 4. Selective coronary angiography. 5. Left ventriculogram. INDICATION: Angina and coronary artery disease. PROCEDURE IN DETAIL: After informed consent was obtained and after a detailed description of the risks, benefits as well as alternative therapies, the patient elected to proceed with angiogram and angioplasty. The right radial area was prepped and draped in normal sterile fashion. Right radial artery was cannulated via modified Seldinger technique with placement of 6-Korean sheath. All catheters exchanged through this sheath. FINDINGS: The left ventriculogram was performed in standard 30-degree PECK view, reveals good cardiac wall motion throughout all segments. Overall ejection fraction estimated at 55% to 60%. SELECTIVE CORONARY ANGIOGRAPHY: 1. Left main is with no significant angiographic disease. 2. Left anterior descending has moderate irregularities proximally, but intravascular ultrasound reveals this is nothing greater than 40%. 3. Left circumflex has mild irregularities. There is a relatively small obtuse marginal that has an angulated takeoff and appears to be stenosed, but this is a small vessel. 4. Right coronary artery is a large, dominant vessel with greater than 70% stenosis in the mid vessel confirmed by intravascular ultrasound. PTCA STENT OF THE RCA: The stent used was a 4.0 x 15 mm Integrity. Result was 0% residual stenosis. OVERALL IMPRESSION: Successful PTCA stent of the RCA going from greater than 70% initial stenosis confirmed by intravascular ultrasound to 0% residual stenosis. TRANSINT:[id number] Voice Confirmation ID: [id number] DOCUMENT ID: [id number] LOLITA WALKER MD at 1752 CC: [id number] DICTATION DATE: 05/04/18 0958 COMPUTER APPLICATIONS INSTRUCTOR: 05/04/18 1240 DEP CLI 05/04/18 [facility] [address] [place] [address]
[~2018-05-04 07:25] MED LIST changes: -INDERAL LA80 MG PO; -LEVAQUIN250 MG PO; -LOSARTAN POTASS25 MG PO; -NORCO-7.5 PO
[2018-05-04 07:43] VITALS: BP 129/88; Ht 185.4 cm; Wt 84.1 kg
[2018-05-04 07:56] LABS: BASOPHILS 0.4 % (0-2); EOSINOPHILS 4.2 % (0-7); HEMATOCRIT 40.2 % (42.0-54.0); HEMOGLOBIN 14.3 g/dL (13.5-17.5); IMMATURE GRANULOCYTES 0.2 % (0-5); LYMPHOCYTES 16.9 % (15-50); MCH 29.5 pg (26.0-34.0); MCHC 35.6 g/dL (31.0-37.0); MCV 82.9 fL (80.0-100.0); MEAN PLATELET VOLUME 10.2 fL (7.4-10.4); MONOCYTES 10.1 % (2-11); NEUTROPHILS 68.2 % (40-80); PLATELET COUNT 147 10x3/uL (130-400); RBC 4.85 10x6/uL (4.20-6.10); RDW 12.6 % (11.5-14.5); WBC 4.6 10x3/uL (4.8-10.8)
[2018-05-04 08:10] LABS: CALC OSMOLALITY 281 mosm/kg (275-300); CALCIUM 8.4 mg/dL (8.5-10.1); CARBON DIOXIDE 28.8 mmol/L (21.0-32.0); CHLORIDE - SERUM 105 mmol/L (98-107); GLUCOSE 106 mg/dL (74-106); POTASSIUM - SERUM 4.3 mmol/L (3.5-5.1); SODIUM 140 mmol/L (136-145); UREA NITROGEN 21 mg/dL (7-18); eGFR NON AFRICAN AMERICAN 79 mL/min (90-120)
[2018-06-05] MEDS ORDERED: LOSARTAN POTASS25 MG PO (10:07)
[2018-06-05] MEDS ORDERED: INDERAL LA80 MG PO (10:09)
== END 2018-05-04 14:10 | disposition home or self-care (01) ==
LOC: D.CATH 07:25
PROVIDERS: Internal Medicine Interventional Cardiology
DX: I25.119 Atherosclerotic heart disease of native coronary artery with unspecified angina pectoris (principal); T82.855A Stenosis of coronary artery stent, initial encounter; Z01.812 Encounter for preprocedural laboratory examination

== ENCOUNTER 2018-05-22 09:41 | Emergency (ER) | payer MEDICARE, BC ==
[~2018-05-22] VITALS: Ht 185.4 cm; Wt 84.1 kg
[2018-05-22 10:02] VITALS: Ht 185.4 cm; Wt 84.1 kg
[2018-05-22 10:46] LABS: BASOPHILS 0.5 % (0-2); EOSINOPHILS 2.2 % (0-7); HEMATOCRIT 39.1 % (42.0-54.0); HEMOGLOBIN 13.7 g/dL (13.5-17.5); IMMATURE GRANULOCYTES 0.2 % (0-5); LYMPHOCYTES 20.3 % (15-50); MCH 29.4 pg (26.0-34.0); MCV 83.9 fL (80.0-100.0); MEAN PLATELET VOLUME 9.6 fL (7.4-10.4); MONOCYTES 7.1 % (2-11); NEUTROPHILS 69.7 % (40-80); PLATELET COUNT 152 10x3/uL (130-400); RBC 4.66 10x6/uL (4.20-6.10); RDW 12.6 % (11.5-14.5); WBC 4.1 10x3/uL (4.8-10.8)
[2018-05-22 10:58] LABS: ALBUMIN 3.4 g/dL (3.4-5.0); ANION GAP 11.2 mmol/L (8-16); BILIRUBIN - TOTAL 0.53 mg/dL (0.2-1.3); C-REACTIVE PROTEIN 0.4 mg/dL (0.0-0.9); CALCIUM 8.3 mg/dL (8.5-10.1); CARBON DIOXIDE 25.3 mmol/L (21.0-32.0); CREATININE - SERUM 1.4 mg/dL (0.6-1.3); POTASSIUM - SERUM 4.5 mmol/L (3.5-5.1); PROTEIN - SERUM 6.7 g/dL (6.4-8.2)
[2018-05-22 12:06] VITALS: BP 103/078
[2018-05-22 12:09] LABS: ERYTHROCYTE SEDIMENTATION RATE 6 mm/hr (0-20)
[2018-06-05] MEDS ORDERED: LOSARTAN POTASS25 MG PO (10:07)
[2018-06-05] MEDS ORDERED: INDERAL LA80 MG PO (10:09)
== END 2018-05-22 12:09 | disposition other institution (70) ==
LOC: D.ER 09:41
PROVIDERS: Family Medicine
DX: L03.032 Cellulitis of left toe (principal); I10 Essential (primary) hypertension

== ENCOUNTER → 2018-05-26 12:48 | Outpatient (CLI) | payer MEDICARE, BC ==
[2018-05-22 10:02] VITALS: BMI 24.4
[~2018-05-26 12:48] MED LIST changes: +INDERAL LA80 MG PO; +LOSARTAN POTASS25 MG PO
[2018-05-26 15:41] LABS: BASOPHILS 0.5 % (0-2); EOSINOPHILS 1.9 % (0-7); ERYTHROCYTE SEDIMENTATION RATE 6 mm/hr (0-20); HEMATOCRIT 39.8 % (42.0-54.0); HEMOGLOBIN 13.6 g/dL (13.5-17.5); IMMATURE GRANULOCYTES 0.2 % (0-5); LYMPHOCYTES 19.6 % (15-50); MCH 29.4 pg (26.0-34.0); MCHC 34.2 g/dL (31.0-37.0); MEAN PLATELET VOLUME 10.1 fL (7.4-10.4); MONOCYTES 7.7 % (2-11); NEUTROPHILS 70.1 % (40-80); PLATELET COUNT 171 10x3/uL (130-400); RBC 4.63 10x6/uL (4.20-6.10); RDW 12.7 % (11.5-14.5); WBC 4.1 10x3/uL (4.8-10.8)
== END | disposition home or self-care (01) ==
LOC: D.LAB 12:48
PROVIDERS: Orthopaedic Surgery
DX: M79.672 Pain in left foot (principal); R22.42 Localized swelling, mass and lump, left lower limb

== ENCOUNTER → 2018-05-29 12:55 | Outpatient (CLI) | payer MEDICARE, BC ==
[2018-05-22 10:02] VITALS: BMI 24.4
[~2018-05-29 12:55] MED LIST changes: +LEVAQUIN250 MG PO; +NORCO-7.5 PO
== END | disposition home or self-care (01) ==
LOC: D.US 12:55 → D.MRI 15:30
DX: M79.675 Pain in left toe(s) (principal)

== ENCOUNTER 2018-06-10 07:15 | Inpatient (IN) | payer MEDICARE, BC ==
[2018-06-05 10:51] LABS: BASOPHILS 0.7 % (0-2); HEMATOCRIT 38.5 % (42.0-54.0); HEMOGLOBIN 13.4 g/dL (13.5-17.5); IMMATURE GRANULOCYTES 0.2 % (0-5); LYMPHOCYTES 22.4 % (15-50); MCH 29.8 pg (26.0-34.0); MCHC 34.8 g/dL (31.0-37.0); MCV 85.6 fL (80.0-100.0); MEAN PLATELET VOLUME 9.2 fL (7.4-10.4); NEUTROPHILS 65.7 % (40-80); RDW 12.5 % (11.5-14.5)
[2018-06-05 10:55] LABS: PLATELET COUNT 135 10x3/uL (130-400)
[2018-06-05 11:00] LABS: ANION GAP 9.2 mmol/L (8-16); CALCIUM 8.1 mg/dL (8.5-10.1); CREATININE - SERUM 1.2 mg/dL (0.6-1.3); POTASSIUM - SERUM 4.2 mmol/L (3.5-5.1)
[~2018-06-10] VITALS: Ht 185.4 cm; Wt 83.5 kg
[~2018-06-10 07:15] MED LIST changes: -LEVAQUIN250 MG PO; -NORCO-7.5 PO
[2018-06-10 08:09] VITALS: BP 123/80; BMI 24.4
[2018-06-10 18:54] LABS: BASOPHILS 0.1 % (0-2); EOSINOPHILS 0 % (0-7); HEMATOCRIT 42.7 % (42.0-54.0); HEMOGLOBIN 14.8 g/dL (13.5-17.5); IMMATURE GRANULOCYTES 0.1 % (0-5); LYMPHOCYTES 7.1 % (15-50); MCH 29.5 pg (26.0-34.0); MCHC 34.7 g/dL (31.0-37.0); MCV 85.2 fL (80.0-100.0); MEAN PLATELET VOLUME 10.6 fL (7.4-10.4); NEUTROPHILS 91.7 % (40-80); PLATELET COUNT 156 10x3/uL (130-400); RBC 5.01 10x6/uL (4.20-6.10); RDW 12.7 % (11.5-14.5); WBC 7.7 10x3/uL (4.8-10.8)
[2018-06-10 19:58] LABS: ANION GAP 13.7 mmol/L (8-16); CALCIUM 8.6 mg/dL (8.5-10.1); CARBON DIOXIDE 27.2 mmol/L (21.0-32.0); CREATININE - SERUM 1.1 mg/dL (0.6-1.3); POTASSIUM - SERUM 3.9 mmol/L (3.5-5.1)
[2018-06-10 21:11] VITALS: BP 129/76
[2018-06-11 05:26] VITALS: BMI 24.3
[2018-06-11 06:26] VITALS: BP 140/83
[2018-06-11 06:37] LABS: BASOPHILS 0 % (0-2); EOSINOPHILS 0.1 % (0-7); HEMOGLOBIN 13.1 g/dL (13.5-17.5); IMMATURE GRANULOCYTES 0.2 % (0-5); LYMPHOCYTES 10.2 % (15-50); MCHC 34.5 g/dL (31.0-37.0); MCV 84.1 fL (80.0-100.0); MEAN PLATELET VOLUME 10.4 fL (7.4-10.4); MONOCYTES 6.5 % (2-11); PLATELET COUNT 145 10x3/uL (130-400); RBC 4.52 10x6/uL (4.20-6.10); RDW 12.6 % (11.5-14.5)
[2018-06-11 07:16] LABS: CALC OSMOLALITY 284 mosm/kg (275-300); CALCIUM 8.2 mg/dL (8.5-10.1); CARBON DIOXIDE 28.7 mmol/L (21.0-32.0); CHLORIDE - SERUM 106 mmol/L (98-107); CREATININE - SERUM 1.1 mg/dL (0.6-1.3); POTASSIUM - SERUM 3.7 mmol/L (3.5-5.1); SODIUM 142 mmol/L (136-145); UREA NITROGEN 16 mg/dL (7-18); eGFR NON AFRICAN AMERICAN 70 mL/min (90-120)
[2018-06-11 07:17] LABS: C-REACTIVE PROTEIN < 0.2 mg/dL (0.0-0.9); GLUCOSE 113 mg/dL (74-106)
[2018-06-11 09:25] LABS: ERYTHROCYTE SEDIMENTATION RATE 11 mm/hr (0-20)
[2018-06-11 09:58] VITALS: BP 121/68
[2018-06-11 12:20] VITALS: Ht 185.4 cm; Wt 83.5 kg
[2018-06-11 12:44] VITALS: BP 118/76
[2018-06-11 17:43] VITALS: BP 121/73
[2018-06-11 23:12] VITALS: BP 115/64
[2018-06-12 04:44] VITALS: BP 132/73
[2018-06-12 08:22] VITALS: BP 130/81
[2018-06-12 12:42] VITALS: BP 129/79
[2018-06-12 16:19] VITALS: BP 129/80
[2018-06-12 22:28] VITALS: BP 117/63
[2018-06-13 04:59] VITALS: BP 130/70
[2018-06-13 06:58] VITALS: BP 129/74
[2018-06-13 16:14] VITALS: BP 129/88
[2018-06-13 20:27] VITALS: BP 128/79
[2018-06-14 01:03] VITALS: BP 134/84
[2018-06-14 04:59] VITALS: BP 103/53
[2018-06-14 09:41] VITALS: BP 131/78
[2018-06-14 15:53] VITALS: BP 137/83
[2018-06-14 20:05] VITALS: BP 137/82
[2018-06-15 03:43] VITALS: BP 123/74
[2018-06-15 04:11] LABS: BASOPHILS 0.7 % (0-2); EOSINOPHILS 4.8 % (0-7); HEMATOCRIT 36.6 % (42.0-54.0); HEMOGLOBIN 12.6 g/dL (13.5-17.5); IMMATURE GRANULOCYTES 0.4 % (0-5); LYMPHOCYTES 22.9 % (15-50); MCH 29.3 pg (26.0-34.0); MCHC 34.4 g/dL (31.0-37.0); MCV 85.1 fL (80.0-100.0); MEAN PLATELET VOLUME 10.3 fL (7.4-10.4); MONOCYTES 10.5 % (2-11); NEUTROPHILS 60.7 % (40-80); PLATELET COUNT 119 10x3/uL (130-400); WBC 4.6 10x3/uL (4.8-10.8)
[2018-06-15 04:25] LABS: CALC OSMOLALITY 282 mosm/kg (275-300); CALCIUM 7.9 mg/dL (8.5-10.1); CARBON DIOXIDE 26.8 mmol/L (21.0-32.0); CHLORIDE - SERUM 108 mmol/L (98-107); GLUCOSE 90 mg/dL (74-106); POTASSIUM - SERUM 3.6 mmol/L (3.5-5.1); SODIUM 141 mmol/L (136-145); UREA NITROGEN 18 mg/dL (7-18); eGFR NON AFRICAN AMERICAN 78 mL/min (90-120)
[2018-06-15 04:26] LABS: C-REACTIVE PROTEIN < 0.2 mg/dL (0.0-0.9)
[2018-06-15 05:14] LABS: ERYTHROCYTE SEDIMENTATION RATE 28 mm/hr (0-20)
[2018-06-15 08:05] VITALS: BP 136/81
[2018-06-15 12:01] VITALS: BP 127/72
[2018-06-15 15:42] VITALS: BP 132/71
[2018-06-15] MEDS ORDERED: NORCO-7.5 PO (16:03)
[2018-06-15] MEDS ORDERED: LEVAQUIN250 MG PO (16:04)
== END 2018-06-15 20:00 | disposition home health service (06) | DRG 504 ==
LOC: D.OPS 07:15 → D.PAN 08:15 → D.OPS 08:15 → D.MS 18:05 → D.OPS 18:06 → D.MS 06-15 20:00
PROVIDERS: Orthopaedic Surgery; Student in an Organized Health Care Education/Training Program
PROC: 0SPP04Z Removal of Internal Fixation Device from Right Toe Phalangeal Joint, Open Approach (ICD-10-PCS; principal; 2018-06-10 09:30)
PROC: 0QBR0ZZ Excision of Left Toe Phalanx, Open Approach (ICD-10-PCS; 2018-06-10 09:30)
PROC: 02HV33Z Insertion of Infusion Device into Superior Vena Cava, Percutaneous Approach (ICD-10-PCS; 2018-06-15)
PROC: B548ZZA Ultrasonography of Superior Vena Cava, Guidance (ICD-10-PCS; 2018-06-15)
DX: T84.69XA Infection and inflammatory reaction due to internal fixation device of other site, initial encounter (principal); M00.9 Pyogenic arthritis, unspecified; M86.9 Osteomyelitis, unspecified; I25.10 Atherosclerotic heart disease of native coronary artery without angina pectoris

== ENCOUNTER → 2018-06-22 10:05 | Outpatient (CLI) | payer MEDICARE, BC ==
[2018-06-11 12:20] VITALS: BMI 24.2
[~2018-06-22 10:05] MED LIST changes: +LEVAQUIN250 MG PO; +NORCO-7.5 PO
[2018-06-22 13:20] LABS: BASOPHILS 0.6 % (0-2); EOSINOPHILS 2.8 % (0-7); HEMATOCRIT 39.4 % (42.0-54.0); HEMOGLOBIN 13.6 g/dL (13.5-17.5); IMMATURE GRANULOCYTES 0.2 % (0-5); LYMPHOCYTES 11.1 % (15-50); MCH 29.8 pg (26.0-34.0); MCHC 34.5 g/dL (31.0-37.0); MCV 86.4 fL (80.0-100.0); MEAN PLATELET VOLUME 11.3 fL (7.4-10.4); MONOCYTES 10.9 % (2-11); NEUTROPHILS 74.4 % (40-80); PLATELET COUNT 136 10x3/uL (130-400); RBC 4.56 10x6/uL (4.20-6.10); WBC 5.4 10x3/uL (4.8-10.8)
[2018-06-22 13:34] LABS: C-REACTIVE PROTEIN 0.6 mg/dL (0.0-0.9); CREATININE - SERUM 1.1 mg/dL (0.6-1.3); VANCOMYCIN - TROUGH 9.4 ug/mL (10.0-20.0)
[2018-06-22 14:47] LABS: ERYTHROCYTE SEDIMENTATION RATE 5 mm/hr (0-20)
== END | disposition home or self-care (01) ==
LOC: D.LABREF 10:05
PROVIDERS: Orthopaedic Surgery
DX: M86.10 Other acute osteomyelitis, unspecified site (principal)

== ENCOUNTER → 2018-06-29 10:19 | Outpatient (CLI) | payer MEDICARE, BC ==
[2018-06-11 12:20] VITALS: BMI 24.2
[2018-06-29 13:03] LABS: BASOPHILS 0.6 % (0-2); EOSINOPHILS 3.7 % (0-7); HEMATOCRIT 39.4 % (42.0-54.0); HEMOGLOBIN 13.4 g/dL (13.5-17.5); IMMATURE GRANULOCYTES 0.2 % (0-5); LYMPHOCYTES 12.8 % (15-50); MCH 29.2 pg (26.0-34.0); MCV 85.8 fL (80.0-100.0); MEAN PLATELET VOLUME 10.5 fL (7.4-10.4); NEUTROPHILS 71.7 % (40-80); PLATELET COUNT 161 10x3/uL (130-400); RBC 4.59 10x6/uL (4.20-6.10); RDW 12.8 % (11.5-14.5); WBC 4.8 10x3/uL (4.8-10.8)
[2018-06-29 13:15] LABS: CREATININE - SERUM 1.2 mg/dL (0.6-1.3); UREA NITROGEN 17 mg/dL (7-18); VANCOMYCIN - TROUGH 17.7 ug/mL (10.0-20.0)
[2018-06-29 13:25] LABS: C-REACTIVE PROTEIN < 0.2 mg/dL (0.0-0.9)
[2018-06-29 14:23] LABS: ERYTHROCYTE SEDIMENTATION RATE 6 mm/hr (0-20)
== END | disposition home or self-care (01) ==
LOC: D.LABREF 10:19
PROVIDERS: Orthopaedic Surgery
DX: M86.8X7 Other osteomyelitis, ankle and foot (principal)

== ENCOUNTER → 2018-07-06 09:28 | Outpatient (CLI) | payer MEDICARE, BC ==
[2018-06-11 12:20] VITALS: BMI 24.2
[2018-07-06 10:45] LABS: EOSINOPHILS 4.2 % (0-7); HEMATOCRIT 37.8 % (42.0-54.0); IMMATURE GRANULOCYTES 0.2 % (0-5); MCH 29.3 pg (26.0-34.0); MCHC 34.4 g/dL (31.0-37.0); MCV 85.1 fL (80.0-100.0); MEAN PLATELET VOLUME 10.8 fL (7.4-10.4); MONOCYTES 9.5 % (2-11); NEUTROPHILS 69.1 % (40-80); PLATELET COUNT 152 10x3/uL (130-400); RBC 4.44 10x6/uL (4.20-6.10); RDW 12.8 % (11.5-14.5)
[2018-07-06 11:01] LABS: CREATININE - SERUM 1.2 mg/dL (0.6-1.3); UREA NITROGEN 24 mg/dL (7-18); VANCOMYCIN - TROUGH 19.1 ug/mL (10.0-20.0)
[2018-07-06 11:03] LABS: C-REACTIVE PROTEIN < 0.2 mg/dL (0.0-0.9)
[2018-07-06 12:47] LABS: ERYTHROCYTE SEDIMENTATION RATE 2 mm/hr (0-20)
== END | disposition home or self-care (01) ==
LOC: D.LABREF 09:28
PROVIDERS: Orthopaedic Surgery
DX: M86.9 Osteomyelitis, unspecified (principal); Z51.81 Encounter for therapeutic drug level monitoring; Z79.2 Long term (current) use of antibiotics

== ENCOUNTER → 2018-07-13 11:19 | Outpatient (CLI) | payer MEDICARE, BC ==
[2018-06-11 12:20] VITALS: BMI 24.2
[2018-07-13 12:00] LABS: BASOPHILS 0.5 % (0-2); EOSINOPHILS 3.2 % (0-7); HEMATOCRIT 40.1 % (42.0-54.0); HEMOGLOBIN 13.9 g/dL (13.5-17.5); LYMPHOCYTES 15.1 % (15-50); MCH 29.6 pg (26.0-34.0); MCHC 34.7 g/dL (31.0-37.0); MCV 85.3 fL (80.0-100.0); MEAN PLATELET VOLUME 11.5 fL (7.4-10.4); NEUTROPHILS 71.2 % (40-80); PLATELET COUNT 138 10x3/uL (130-400); RDW 12.6 % (11.5-14.5); WBC 4.4 10x3/uL (4.8-10.8)
[2018-07-13 12:12] LABS: CREATININE - SERUM 1.1 mg/dL (0.6-1.3); UREA NITROGEN 20 mg/dL (7-18); VANCOMYCIN - TROUGH 17.7 ug/mL (10.0-20.0)
[2018-07-13 12:17] LABS: C-REACTIVE PROTEIN < 0.2 mg/dL (0.0-0.9)
[2018-07-13 13:10] LABS: ERYTHROCYTE SEDIMENTATION RATE 3 mm/hr (0-20)
== END | disposition home or self-care (01) ==
LOC: D.LABREF 11:19
PROVIDERS: Student in an Organized Health Care Education/Training Program
DX: M86.9 Osteomyelitis, unspecified (principal); Z51.81 Encounter for therapeutic drug level monitoring; Z79.2 Long term (current) use of antibiotics

== ENCOUNTER → 2018-07-20 13:58 | Outpatient (CLI) | payer MEDICARE, BC ==
[2018-06-11 12:20] VITALS: BMI 24.2
[2018-07-20 14:34] LABS: BASOPHILS 0.2 % (0-2); EOSINOPHILS 3.3 % (0-7); HEMATOCRIT 40.5 % (42.0-54.0); HEMOGLOBIN 13.9 g/dL (13.5-17.5); IMMATURE GRANULOCYTES 0.2 % (0-5); LYMPHOCYTES 17.7 % (15-50); MCHC 34.3 g/dL (31.0-37.0); MCV 84.6 fL (80.0-100.0); MEAN PLATELET VOLUME 11.4 fL (7.4-10.4); MONOCYTES 10.7 % (2-11); NEUTROPHILS 67.9 % (40-80); PLATELET COUNT 140 10x3/uL (130-400); RBC 4.79 10x6/uL (4.20-6.10); RDW 12.4 % (11.5-14.5); WBC 4.6 10x3/uL (4.8-10.8)
[2018-07-20 16:10] LABS: ERYTHROCYTE SEDIMENTATION RATE 2 mm/hr (0-20)
[2018-07-22 17:18] LABS: VANCOMYCIN - TROUGH 41.7 ug/mL (10.0-20.0)
== END | disposition home or self-care (01) ==
LOC: D.LABREF 13:58
PROVIDERS: Orthopaedic Surgery
DX: T84.69XA Infection and inflammatory reaction due to internal fixation device of other site, initial encounter (principal); M86.8X7 Other osteomyelitis, ankle and foot

== ENCOUNTER 2018-07-22 12:27 | Outpatient (CLI) | payer MEDICARE, BC ==
[~2018-07-22] VITALS: Ht 185.4 cm; Wt 84.1 kg
[2018-07-22 13:14] VITALS: BP 134/77; Ht 185.4 cm; Wt 84.1 kg
== END 2018-07-22 13:25 | disposition home or self-care (01) ==
LOC: D.OPS 12:27
DX: M86.9 Osteomyelitis, unspecified (principal); Z01.812 Encounter for preprocedural laboratory examination

== ENCOUNTER → 2019-05-05 07:59 | Outpatient (CLI) | payer MEDICARE, BC ==
[2018-07-22 13:14] VITALS: BMI 24.4
[~2019-05-05 07:59] MED LIST changes: +HCTZ25 MG PO
== END | disposition home or self-care (01) ==
LOC: D.HCCARDIO 07:59
PROVIDERS: ATTEND Internal Medicine Cardiovascular Disease
DX: I25.10 Atherosclerotic heart disease of native coronary artery without angina pectoris (principal)

== ENCOUNTER 2019-05-19 07:59 | Outpatient (CLI) | payer MEDICARE, BC ==
[~2019-05-19] VITALS: Ht 185.4 cm; Wt 84.1 kg
--- NOTE | ~2019-05-19 | HEMODYNAMI ---
PATIENT:RACIEL MORRISON MEDICAL RECORD: [id number] : 46 LOCATION:D.CAT ADMISSION DATE: 05/19/19 Generatedon:05/19/201910:50 Patient name: RACIEL MORRISON Patient #: [id number] SSN: : 1950 Date of study: 05/19/2019 Page: Of Hemodynamic Procedure Report Patient Data Patient Demographics Procedure consent was obtained First Name: RACIEL Gender: Male Last Name: PRINCE : 1950 Patient #: [id number] Age: 69 year(s) Race: Unknown Additional ID: [id number] Contact details Address: [address] [place] [address] State: [place] City: [place] Zip code: [address] Past Medical History Allergies: No known allergies Admission Admission Data Admission Date: 05/19/2019 Admission Time: 7:59 Arrival Date: 05/19/2019 Arrival Time: 10:00 Admit Source: Other Insurance Payor: Medicare Height (in.): 72.83 BSA: 2.08 (m2) Height (cm.): 185 BMI: 24.54 (kg/m2) Weight (lbs.): 185.19 Weight (kg.): 84 Lab Results Lab Result Date: 05/19/2019 Lab Result Time: 0:00 Biochemistry Name Units Result Min Max BUN mg/dl 18 --(---*)-- 7 18 Creatinine mg/dl 1 --(--*-)-- 0.6 1.3 CBC Name Units Result Min Max Hemoglobin g/dl 14.5 --(*---)-- 13.5 17.5 Procedure Procedure Types Cath Procedure Diagnostic Procedure [facility] w/Coronaries Sedation Charges Moderate Sedation up to 15 minutes PCI Procedure Coronary Stent Coronary Stent Initial Procedure Description Procedure Date Procedure Date: 05/19/2019 Procedure Start Time: 10:29 Procedure End Time: 10:47 Procedure Staff Name Function Venkatesh Yap MD Performing Physician Aleksandar Lara RT Monitor Delphine Pillai RT Scrub Buffie Simon RN Nurse Procedure Data Cath Procedure Fluoroscopy Diagnostic fluoroscopy Total fluoroscopy Time: 3.8 time: 3.8 min min Diagnostic fluoroscopy Total fluoroscopy dose: 809 dose: 809 mGy mGy Contrast Material Contrast Material Type Amount (ml) Isovue 300 92 Entry Location Entry Primary Successful Side Size Upsize Upsize Entry Closure [place] ccessful Closure Location (Fr) 1 (Fr) 2 (Fr) Remarks Device Remarks Radial Right 6 Fr Mechanical artery Short Compression Estimated blood loss: 10 ml Diagnostic catheters Device Type Used For End Catheter Placement DIAGNOSTIC [place] 110cm 5 Procedure Fr catheter ([id number]) DIAGNOSTIC AR2 MOD 5 Fr Procedure catheter ([id number]) Procedure Complications No complications Procedure Medications Medication Administration Route Dosage Oxygen etCO2 Nasal cannula 2 l/min Lidocaine 2% added to field 20 Heparin Flush Bag added to field 2 bags (1000units/500ml NS) 0.9% NaCl I.V. 100 ml/hr Radial Cocktail I.A. 1 syringe (Verapamil 2mg/Nitro 400mcg/Heparin 1500units) Versed I.V. 2 mg Fentanyl I.V. 50 mcg Versed I.V. 2 mg Fentanyl I.V. 50 mcg Heparin Bolus I.V. 4000 units Hemodynamics Rest BSA: 2.08 (m2) HGB: 14.5 (g/dl) O2 Consumption: Estimated: 225.85 (ml/min) O2 Co nsumption indexed: Estimated:108.58 (ml/min/m) Heart Rate: 51 (bpm) Pressure Samples Time Site Value (mmHg) Purpose Heart Use Rate(bpm) 10:34 LV 92/-9,-4 Snapshot 68 Snapshots Pre Cath Intra NCS Post Cath Vital Signs Time Heart Resp SPO2 etCO2 NIBP Rhythm Pain Sedation Rate (ipm) (%) (mmHg) (mmHg) Status Level (bpm) 10:01:59 52 12 98 36.1 121/76(93) NSR 0 (11) 10(A) , No pain 10:06:13 53 11 96 0 119/70(85) NSR 0 (11) 10(A) , No pain 10:10:27 56 11 94 0 116/68(89) NSR 0 (11) 10(A) , No pain 10:14:41 60 13 94 0 111/68(84) NSR 0 (11) 10(A) , No pain 10:18:52 56 16 94 0 109/70(82) NSR 0 (11) 10(A) , No pain 10:23:04 55 23 94 0 110/69(79) NSR 0 (11) 10(A) , No pain 10:27:16 58 13 93 0 108/70(87) NSR 0 (11) 10(A) , No pain 10:31:31 58 13 93 27.1 114/66(80) NSR 0 (11) 9(A) , No pain 10:35:42 67 10 92 29.3 80/54(61) NSR 0 (11) 9(A) , No pain 10:39:46 65 11 94 29.3 90/59(72) NSR 0 (11) 9(A) , No pain 10:43:54 63 12 94 15.8 100/62(72) NSR 0 (11) 10(A) , No pain Medications Time Medication Route Dose Verified Delivered Reason Not es Effectiveness by by 10:00:59 Oxygen etCO2 2 l/min Venkatesh Castro used for Nasal Marely Simon stock tracer cannula 10:01:07 Lidocaine 2% added 20ml Venkatesh Riddle for local to vial Marely Yap MD anesthetic field 10:01:15 Heparin Flush added 2 bags Venkatesh Riddle used for Bag to Marely Yap MD procedure (1000units/500ml field NS) 10:01:24 0.9% NaCl I.V. 100 Venkatesh Castro Per physician ml/hr Marely Simon RN 10:26:21 Versed I.V. 2 mg Venkatesh Castro for sedation Marely Simon RN 10:26:29 Fentanyl I.V. 50 mcg Venkatesh Castro for sedation Marely Simon RN 10:33:31 Versed I.V. 2 mg Venkatesh Castro for sedation Marely Simon RN 10:33:34 Fentanyl I.V. 50 mcg Venkatesh Castro for sedation Marely Simon RN 10:33:39 Radial Cocktail I.A. 1 Venkatesh Riddle for (Verapamil syringe Marely Yap MD vasodilation 2mg/Nitro 400mcg/Heparin 1500units) 10:39:36 Heparin Bolus I.V. 4000 Venkatesh Castro for segun ified units Marely Simon RN anticoagulation with dr yap Procedure Log Time Note 9:30:13 Diagnostic Cath Status : Elective 9:33:22 Lab Result : Hemoglobin 14.5 g/dl 9::22 Lab Result : Creatinine 1 mg/dl 9:: Lab Result : BUN 18 mg/dl 9:33:27 Admit Source: Other 9:33:31 Patient Weight : 185.19 lbs 9:33:34 Patient Height : 72.83 inches 9:33:43 Arrival Date: 05/19/2019 10:00:00 AM 9:33:49 Insurance Payor : Medicare 9:42:52 Gloria Simon RN sent for patient. Start room use. 9:42:53 Time tracking: Regular hours (M-F 7:00 - 5:00) 9:42:59 Plan of Care:Hemodynamics will remain stable., Cardiac rhythm will remain stable., Comfort level will be maintained., Respiratory function will remain adequate., Patient/ family verbilizes understanding of procedure., Procedure tolerated without complication., Recovers from procedure without complications.. 9:44:28 ACCPatient has been prescribed/administered the following anti-anginal medication within the last 2 weeks: None 9:44:32 Procedure Status Elective Heart Cath (OP). 9:49:45 Patient received from Pre/Post Procedure Room to CCL 2 Alert and oriented. Tansferred to table in Supine position. 9:49:48 Signed procedure consent form obtained from patient. 9:49:49 Warm blankets applied, and aicha hugger turned on for patient comfort. 9:49:49 Correct patient and procedure confirmed by team. 9:49:50 ECG and BP/O2 sat monitors applied to patient. 9:50:07 ACC Patient presents with No angina; no symptoms CCS Anginal Class 0--No symptoms, no angina. 10:00:59 Oxygen 2 l/min etCO2 Nasal cannula was administered by Gloria Simon RN; used for procedure; 10:01:00 Vital chart was started 10:01:07 Lidocaine 2% 20ml vial added to field was administered by Venkatesh Yap MD; for local anesthetic; 10:01:15 Heparin Flush Bag (1000units/500ml NS) 2 bags added to field was administered by Venkatesh Yap MD; used for procedure; 10:01:24 0.9% NaCl 100 ml/hr I.V. was administered by Gloria Simon RN; Per physician; 10:02:05 Baseline sample Acquired. 10:02:49 Rhythm: sinus rhythm 10:02:50 Full Disclosure recording started 10:03:05 H&P Date Dictated: 05/19/2019 New H&P dictated by physician.. 10:03:06 Pre-procedure instructions explained to patient. 10:03:06 Pre-op teaching completed and patient verbalized understanding. 10:03:07 Family in waiting room. 10:03:09 Patient NPO since Midnight. 10:03:13 Patient allergic to No known allergies 10:03:15 Is the patient allergic to Iodine/contrast media? No. 10:03:16 Is patient on blood thinner?Yes 10:03:23 ACC The patient was administered the following blood thiners within the last 24 hours: ACCAspirin, ACCPlavix 10:03:25 Patient diabetic? No. 10:03:27 Previous problem with sedation/anesthesia? No ? 10:03:28 Snore? Yes 10:03:29 Sleep apnea? No 10:03:29 Deviated septum? No 10:05:26 Opens mouth fully? Yes 10:05:27 Sticks out tongue? Yes 10:05:29 Airway obstruction? No ? 10:05:31 Dentures? No ? 10:05:36 Pre procedure: right dorsailis pedis pulse 3+ Increased pulse; moderate pressure to obliterate 10:05:40 Patient pain scale 0/10 ?. 10:05:42 Modified Kev's test Radial < 7 seconds 10:05:49 IV patent on arrival in left forearm with 0.9% NaCl at O. 10:05:50 Lab results completed and on chart. 10:05:53 Right Radial & Right Groin area was prepped with chlora-prep and draped in sterile fashion 10:05:53 Alarms reviewed by R. N. 10:05:54 Sharps counted by scrub and verified by R.N. 10:05:58 Use device set Radial Dx or PCI 10:05:59 ACIST Syringe (72082) opened to sterile field. 10:06:00 Medline Cath Pack ([id number]) opened to sterile field. 10:06:00 Bag Decanter (2002S) opened to sterile field. 10:06:00 ACIST Hand Control (52679) opened to sterile field. 10:06:01 ACIST Manifold (54275) opened to sterile field. 10:06:01 Tegaderm 4 x 4 (1626W) opened to sterile field. 10:06:01 MBrace Wrist Support ([id number]) opened to sterile field. 10:06:04 EMERALD Guide Wire (502-847) opened to sterile field. 10:06:07 SHEATH 6FR RAIN (8663840) opened to sterile field. 10::59 Zero performed for pressure channel P1 10::59 Zero performed for pressure channel P1 10:25:35 Physician arrived 10::35 --------ALL STOP TIME OUT------ 10:25:35 Final Timeout: patient, procedure, and site verified with staff and physician. All members of the team are in agreement. 10:26:13 Right Radial & Right Groin site verified by team. 10:26:16 Fire Safety Assessment: A--An alcohol-based skin anteseptic being used preoperatively., C--Open oxygen or nitrous oxide is being used., D--An ESU, laser, or fiber-optic light is being used. 10:26:18 Physical assessment completed. ASA score P 2 - A patient with mild systemic disease as per Venkatesh aYp MD. 10:26:21 Versed 2 mg I.V. was administered by Gloria Simon RN; for sedation; 10:26:28 2) 60-89 Mildly reduced kidney function, and other findings (as for stage 1) point to kidney disease. 10:26:29 Fentanyl 50 mcg I.V. was administered by Gloria Simon RN; for sedation; 10:26:30 Maximum allowable contrast dose (3.7 X eGFR X 0.75)244 ml. 10:26:33 Sedation plan: IV Moderate Sedation Medication:Versed, Fentanyl 10:29:27 Procedure started. 10:29:39 Local anesthetic to right radial artery with Lidocaine 2% by Venkatesh Yap MD.INITIAL ACCESS ONLY 10:32:47 A 6 Fr Short sheath was inserted into the Right Radial artery 10:33:14 A DIAGNOSTIC [place] 110cm 5 Fr catheter (591433) was advanced over the wire and used for Procedure. 10:33:31 Versed 2 mg I.V. was administered by Gloria Simon RN; for sedation; 10:33:34 Fentanyl 50 mcg I.V. was administered by Gloria Simon RN; for sedation; 10:33:39 Radial Cocktail (Verapamil 2mg/Nitro 400mcg/Heparin 1500units) 1 syringe I.A. was administered by Venkatesh Yap MD; for vasodilation; 10:34:08 LV gram done using PECK 10:34:10 Injector settings: Ml/sec: 5, Volume: 15, 10:34:11 LV hemodynamics recorded. 10:34:17 EF : 50 % 10:35:09 LCA angiography performed. 10:36:14 Catheter exchanged over wire. 10:36:22 A DIAGNOSTIC AR2 MOD 5 Fr catheter (591027N) was advanced over the wire and used for Procedure. 10:37:21 INFLATOR Merit BasixCompak (NO4559) opened to sterile field. 10:37:22 GUIDE 6FR XB 3.5 catheter (46102353) opened to sterile field. 10:37:25 RCA angiography performed. 10:38:33 CHOICE PT Extra Support 182cm wire ([id number]) opened to sterile field. 10:38:37 Catheter exchanged over wire. 10:38:45 Pre PCI Site: [place] OM1 has 90% stenosis. 10:38:51 6 Fr XB 3.5 guide catheter was inserted over the wire 10:38:55 CHOICE PT ES wire advanced. 10:38:57 ACC Pre-intervention RANJEET Flow is 3. 10:39:36 Heparin Bolus 4000 units I.V. was administered by Gloria Simon RN; for anticoagulation; verified with dr yap 10:40:28 Wire advanced across lesion. 10:41:04 Inflate balloon Inflation number: 1 A EUPHORA 3.0 x 10 balloon ([id number]) was prepped and advanced across the 1st Ob Sharon , then inflated to 13 PAPA for 0:10 (min:sec) . 10:41:12 Balloon removed over the wire. 10:42:53 Place stent Inflation Number: 2 A COBRA RX 3.0 X 08 Stent was prepped and advanced across the 1st Ob Sharon . The stent was deployed at 15 PAPA for 0:10 (min:sec) . 10:43:09 Post PCI Site: [place] OM1 has 0% stenosis. 10:43:23 ACC Post-intervention RANJEET Flow is 3. 10:43:27 ACCDominant side:Co-Dominant 10:43:31 Stent catheter was removed intact over wire. 10:43:32 Wire removed. 10:43:32 Guide catheter removed. 10:44:47 ACT drawn and resulted at 336 seconds. (normal therapeutic range 180-240 seconds). 10:45:18 ZEPHYR REGULAR TR BAND (456780) opened to sterile field. 10:45:25 Sheath removed intact; hemostasis achieved with Mechanical Compression to the Right Radial artery. 10:45:27 Procedure ended.(Physican Out) 10:45:54 Fluoroscopy time 03.80 minutes. 10:45:58 Flurop Dose total: 809 10:45:58 Fluoroscopy dose: 809 mGy 10:46:02 Dose Area Product 84356 mGy/cm. 10:46:05 Contrast amount:Isovue 300 92ml. 10:46:07 Maximum allowable dose exceeded? No. 10:46:08 Sharps counted by scrub and verified by R.N. 10:46:10 [place] band inflated with 10cc of air. 10:46:11 Insertion/operative site no bleeding no hematoma. 10:46:13 Post Procedure Pulses reassessed and unchanged 10:46:15 Post-procedure physical assessment completed. ASA score P 2 - A patient with mild systemic disease as per Venkatesh Yap MD. 10:46:17 Post procedure rhythm: unchanged. 10:46:18 Estimated blood loss: 10 ml 10:46:19 Post procedure instruction explained to patient.Patient verbalizes understanding. 10:46:19 Patient needs reinforcement of post procedure teaching. 10:46:31 Procedure type changed to Cath procedure, Diagnostic procedure, LHC, LHC w/Coronaries, Sedation Charges, Moderate Sedation up to 15 minutes, PCI procedure, Coronary Stent, Coronary Stent Initial 10:46:57 Procedure and supply charges have been captured, reviewed, submitted and are correct. 10:46:59 Procedure Complication : No complications 10:47:09 Vital chart was stopped 10:47:10 See physician's report for complete and final results. 10:47:11 Report given to Pre/Post Procedure Room. 10:47:13 Patient transfered to Pre/Post Procedure Room with Stretcher. 10:47:15 Procedure ended. 10:47:15 Full Disclosure recording stopped 10:47:22 ACC-PCI Only Patient was given prescriptions, or instructed by Venkatesh Yap MD to start/continue the following medications upon discharge: Aspirin, Plavix 10:47:22 End room use (Document Last) Intervention Summary Intervention Notes Time ActionType Lesion and Equipment Action# Pressure Duration Attributes Used 10:41:04 Inflate 1st Ob [place] EUPHORA 1 13 00:10 balloon 3.0 x 10 balloon ([id number]) 10:42:53 Place stent 1st Ob [place] COBRA RX 2 15 00:10 3.0 X 08 Stent Device Usage Item Name Manufacture Quantity Catalog Number Hospital Part Current Minimal Lot# / Charge Number Stock Stock Serial# Code ACIST Syringe Acist 1 64072 381478 414766 [id number] 20 (44914) Medical Systems Inc Medline Cath Medline 1 [id number] 711149 90767 146998 5 Pack ([id number]) Bag Decanter Microtek 1 2001S 767930 42614 075930 5 (2001S) Medical Inc. ACIST Hand Acist 1 41040 395032 817068 820752 5 Control Medical (08815) Systems Inc ACIST Manifold Acist 1 13116 855954 624923 105660 5 (96593) Medical Systems Inc Tegaderm 4 x 4 3M 1 1626W 681967 869618 853679 5 (1626W) MBrace Wrist Advanced 1 140-0250-00 765683 36209 459780 5 Support Vascular (750995361) Dynamics EMERALD Guide Cardinal 1 502-455 342327 603395 027751 5 Wire (502-455) Health SHEATH 6FR Cardinal 1 8553247 600815 7069109 609442 5 RAIN (3909022) Health DIAGNOSTIC Terumo 1 40-5013 610048 471284 686938 5 [place] 110cm 5 Fr catheter (558207) DIAGNOSTIC AR2 Cardinal 1 [id number] 872405 229156 352707 20 MOD 5 Fr Health catheter (707379G) INFLATOR Merit Merit 1 SO7219 425435 741421 651508 15 StockpulsehiMalwarebytes (FU9804) GUIDE 6FR XB Cardinal 1 02849981 688714 955702 802374 2 3.5 catheter Health (66719875) CHOICE PT [place] 1 [id number] 706823 659496 932569 5 Extra Support Scientific 182cm wire (0151302N6) EUPHORA 3.0 x Medtronic 1 [id number] 674531 505230 796591 5 [id number] 10 balloon ([id number]) COBRA RX 3.0 X Celonova 1 877859 [id number] 8927769 8 [id number] 08 stent Biosciences () ZEPHYR REGULAR Cardinal 1 990052 664458 9103377 309806 5 BAND [facility] (919674) Signature Audit [place] Stage Time Signature Unsigned Intra-Procedure 05/19/2019 Aleksandar Lara 10:50:19 AM RT(R) Signatures Performing Physician : Signature : Venkatesh Yap MD Date : Time : Monitor : Aleksandar Lara RT Signature : Date : Time : Nurse : Gloria Simon RN Signature : Date : Time : [facility] [address] [place] [address]
[~2019-05-19 07:59] MED LIST changes: -HCTZ25 MG PO
[2019-05-19] MEDS ORDERED: PLAVIX75 MG PO (08:13)
[2019-05-19] MEDS ORDERED: HCTZ25 MG PO (08:13)
[2019-05-19 08:33] VITALS: BP 130/75; Ht 185.4 cm; Wt 84.1 kg
[2019-05-19 08:41] LABS: BASOPHILS 0.5 % (0-2); EOSINOPHILS 2.2 % (0-7); HEMATOCRIT 40.1 % (42.0-54.0); HEMOGLOBIN 14.5 g/dL (13.5-17.5); IMMATURE GRANULOCYTES 0.2 % (0-5); LYMPHOCYTES 14.5 % (15-50); MCH 29.4 pg (26.0-34.0); MCHC 36.2 g/dL (31.0-37.0); MCV 81.3 fL (80.0-100.0); MEAN PLATELET VOLUME 9.9 fL (7.4-10.4); MONOCYTES 8.9 % (2-11); NEUTROPHILS 73.7 % (40-80); PLATELET COUNT 129 10x3/uL (130-400); RBC 4.93 10x6/uL (4.20-6.10); RDW 12.8 % (11.5-14.5); WBC 4.2 10x3/uL (4.8-10.8)
[2019-05-19 08:52] LABS: ALT (SGPT) 22 U/L (10-68); CALC OSMOLALITY 284 mosm/kg (275-300); CALCIUM 8.7 mg/dL (8.5-10.1); CARBON DIOXIDE 29.8 mmol/L (21.0-32.0); CHLORIDE - SERUM 105 mmol/L (98-107); CHOL - HDL RATIO 3.9 ratio (2.3-4.9); CHOLESTEROL, TOTAL 193 mg/dL (0-200); GLUCOSE 104 mg/dL (74-106); HDL CHOLESTEROL 49 mg/dL (32-96); LDL CHOLESTEROL 126 mg/dL (0-100); LDL-HDL RATIO 2.6 ratio (1.5-3.5); POTASSIUM - SERUM 3.4 mmol/L (3.5-5.1); SODIUM 142 mmol/L (136-145); TRIGLYCERIDE 93 mg/dL (30-200); UREA NITROGEN 18 mg/dL (7-18); eGFR NON AFRICAN AMERICAN 78 mL/min (90-120)
--- NOTE | 2019-05-19 11:00 | NUR ---
PATIENT ARRIVED TO ROOM 6, PLACED ON CM. VSS ON 2L NC. RIGHT Z BAND IN PLACE, NO S/S OF BLEEDING OR HEMATOMA.
--- NOTE | 2019-05-19 11:15 | NUR ---
PATIENT RESTING, VSS ON 2L NC. RIGHT Z BAND IN PLACE, NO S/S OF BLEEDING OR HEMATOMA. NO C/O PAIN, NUMBNESS, OR TINGILNG. SPOUSE PRESENT AT BEDSIDE.
--- NOTE | 2019-05-19 11:45 | NUR ---
PATIENT AWAKE, HEAD OF BED ELEVATED TO 60 DEGREES. PATIENT VOIDED 200 ML PER URINAL WITHOUT ANY DIFFICULTY. PATIENT GIVEN SANDWICH AND SODA PER REQUEST, NO N/V. VSS ON ROOM AIR. RIGHT Z BAND IN PLACE, NO S/S OF BLEEDING OR HEMATOMA.
--- NOTE | 2019-05-19 12:14 | NUR ---
PATIENT AWAKE, VSS ON ROOM AIR. RIGHT Z BAND IN PLACE, NO S/S OF BLEEDING OR HEMATOMA. NO C/O PAIN, NUMBNESS, OR TINGLING.
--- NOTE | 2019-05-19 12:45 | NUR ---
PATIENT AWAKE, PHYSICIAN AT BEDSIDE TO UPDATE PATIENT AND FAMILY. VSS ON ROOM AIR. PATIENT VOIDED 250ML CLEAR YELLOW URINE. NO C/O PAIN, NUMBNESS, OR TINGLING. RIGHT RADIAL TR SITE IS CDI, NO S/S OF BLEEDING OR HEMATOMA.
--- NOTE | 2019-05-19 13:15 | NUR ---
PATIENT RESTING, VSS ON ROOM AIR. RIGHT Z BAND IN PLACE, NO S/S OF BLEEDING OR HEMATOMA. NO C/O PAIN, NUMBNESS, OR TINGLING. NO N/V.
--- NOTE | 2019-05-19 13:45 | NUR ---
PATIENT AWAKE, FAMILY PRESENT AT BEDSIDE. VSS ON ROOM AIR. NO C/O PAIN, NUMBNESS, OR TINGLING. NO N/V. RIGHT Z BAND IN PLACE, NO S/S OF BLEEDING OR HEMATOMA.
--- NOTE | 2019-05-19 14:00 | NUR ---
BEGIN AIR REMOVAL PROTOCOL FOR Z BAND, 3CC OF AIR REMOVED WITH NO S/S OF BLEEDING OR HEMATOMA. NO C/O PAIN, NUMBNESS, OR TINGLING. VSS ON ROOM AIR. FAMILY PRESENT AT BEDSIDE.
--- NOTE | 2019-05-19 14:30 | NUR ---
PATIENT AWAKE, 4CC OF AIR REMOVED FROM Z BAND, NO S/S OF BLEEDING OR HEMATOMA. NO C/O PAIN, NUMBNESS, OR TINGLING. VSS ON ROOM AIR. FAMILY PRESENT AT BEDSIDE.
--- NOTE | 2019-05-19 15:00 | NUR ---
ALL AIR REMOVED FROM Z BAND, DRESSING APPLIED IS CDI, NO S/S OF BLEEDING OR HEMATOMA. NO C/O PAIN, NUMBNESS, OR TINGLING. VSS ON ROOM AIR. IV REMOVED. WRITTEN AND VERBAL DISCHARGE INSTRUCTIONS AND MEDICATION INSTRUCTIONS GIVEN TO PATIENT AND SPOUSE, BOTH VOICE UNDERSTANDING. PATIENT DISCONNECTED FROM MONITORS TO GET DRESSED.
--- NOTE | 2019-05-19 15:15 | NUR ---
PATIENT TRANSPORTED VIA WHEELCHAIR TO CAR WITH SPOUSE DRIVING, ALL BELONGINGS WITH PATIENT.
--- NOTE | 2019-05-21 10:47 | OP ---
PATIENT NAME: RACIEL MORRISON MEDICAL RECORD: [id number] :46 LOCATION:D.CAT ADMISSION DATE: SURGEON: LOLITA WALKER MD DATE OF OPERATION: 05/19/2019 DATE OF SERVICE: 05/19/2019 PROCEDURES: 1. PTCA stent left circumflex obtuse marginal. 2. Left heart catheterization. 3. Selective coronary angiography. 4. Left ventriculogram. INDICATION: Angina, coronary artery disease, abnormal nuclear stress test. PROCEDURE IN DETAIL: After informed consent was obtained and after a detailed explanation of risks, benefits as well as alternative therapies, the patient elected to proceed with angiogram and angioplasty. The right radial area was prepped and draped in normal sterile fashion. Right radial artery was cannulated via modified Seldinger technique with placement of 6-British sheath. All catheters exchanged through this sheath. FINDINGS: Left ventriculogram was performed in standard 30-degree PECK view, reveals good cardiac wall motion, ejection fraction 55% to 60%. SELECTIVE CORONARY ANGIOGRAPHY: 1. Left main is with no significant angiographic disease. 2. Left anterior descending has moderate irregularities, but no flow-limiting stenosis. 3. The left circumflex has a previously placed stent that is widely patent; however, the obtuse marginal is 80% to 90% stenosed, this correlates with perfusion defect that is reversible on nuclear stress testing. 4. Right coronary has [id number] irregularities, but no flow-limiting stenosis. PTCA STENT OF THE LEFT CIRCUMFLEX OBTUSE MARGINAL: The stent used was a 3.0 x 8 mm Cobra. Result was 0% residual stenosis. OVERALL IMPRESSION: Successful percutaneous transluminal coronary angioplasty stent of left circumflex obtuse marginal going from 80% to 90% initial stenosis to 0% residual. TRANSINT:[id number] Voice Confirmation ID: [id number] DOCUMENT ID: [id number] LOLITA WALKER MD at 1047 CC: [id number] DICTATION DATE: 05/19/19 1054 MANAGER FINANCIAL REPORTING: 05/19/19 1157 DEP CLI 05/19/19 [place] [address]
--- NOTE | 2019-05-21 10:47 | HP ---
PATIENT: RACIEL MORRISON MEDICAL RECORD: [id number] ACCOUNT: [id number] LOCATION:NATHAN : 46 ADMISSION DATE: 05/19/19 PCP: RICKY ROBB DO HISTORY AND PHYSICAL EXAMINATION DIAGNOSES: 1. Angina class III. 2. Coronary artery disease. 3. Previous percutaneous transluminal coronary angioplasty stent. 4. Abnormal nuclear stress test, intermediate to high risk. 5. Hypertension. 6. Hyperlipidemia. 7. Family history of coronary artery disease. HISTORY OF PRESENT ILLNESS: Mr. Morrison has had progressive increasing anginal symptomatology, underwent nuclear stress test revealing significant reversible ischemia and is now brought for cardiac catheterization. PHYSICAL EXAMINATION: CONSTITUTIONAL/GENERAL APPEARANCE: Well nourished, well developed, appears stated age. EYES: Lids and conjunctivae noninjected. No discharge. No pallor. ENT: Lips within normal limit. No cyanosis. No pallor. NECK: Carotid arteries, bilateral normal upstroke. No bruits. No thrills. No jugular venous pressure or distention. CERVICAL LYMPH NODES: Nontender. Nonenlarged. THYROID: Not enlarged. No nodules. CARDIOVASCULAR: Precordial exam, nondisplaced. No heaves or pericardial thrills. Rate and rhythm, regular. Heart sounds, normal S1, normal S2. No S3, no gallop, no rub. Systolic murmur, not heard. Diastolic murmur, not heard. RESPIRATORY: Respiratory effort, unlabored. Normal curvature. No thoracic deformity. No chest wall tenderness. Percussion, resonant. Auscultation, clear. No wheezes, no rales, no rhonchi. ABDOMEN: Soft, nondistended, nontender. No abdominal pain, no vomiting and normal appetite. MUSCULOSKELETAL: No joint tenderness, normal gait, normal tone. SKIN: Warm and dry. OVERALL IMPRESSION: Escalating angina now at class 3 with abnormal nuclear stress test, most likely he has hemodynamically significant coronary artery disease. Further care depends upon the findings of the coronary angiography. TRANSINT:[id number] Voice Confirmation ID: [id number] DOCUMENT ID: [id number] LOLITA WALKER MD at 1047 CC: [id number] DICTATION DATE: 05/19/19 1052 COMPLIANCE QUALITY PERFORMANCE ANALYST: 05/19/19 1114 DEP CLI 05/19/19 [facility] [address] [place] [address]
== END 2019-05-19 15:15 ==
LOC: D.CATH 07:59
PROVIDERS: ATTEND Internal Medicine Interventional Cardiology
DX: I25.119 Atherosclerotic heart disease of native coronary artery with unspecified angina pectoris (principal); R94.39 Abnormal result of other cardiovascular function study; Z01.812 Encounter for preprocedural laboratory examination

== ENCOUNTER → 2019-08-25 17:23 | Outpatient (CLI) | payer MEDICARE, BC ==
[2019-05-19 08:33] VITALS: BMI 24.4
[~2019-08-25 17:23] MED LIST changes: +HCTZ25 MG PO
[2019-08-25 17:44] LABS: CHOL - HDL RATIO 2.7 ratio (2.3-4.9); LDL-HDL RATIO 1.4 ratio (1.5-3.5)
== END | disposition home or self-care (01) ==
LOC: D.LABREF 17:23
PROVIDERS: ATTEND Internal Medicine Interventional Cardiology
DX: E78.5 Hyperlipidemia, unspecified (principal)

== ENCOUNTER 2020-06-22 21:21 | Emergency (ER) | payer MEDICARE, BC ==
[~2020-06-22] VITALS: Ht 185.4 cm; Wt 81.8 kg
[2020-06-22 21:26] VITALS: BP 139/90; Ht 185.4 cm; Wt 81.8 kg
[2020-06-22] MEDS ORDERED: REPATHA SY140 MG/1 M SC (21:30)
== END 2020-06-22 22:46 | disposition home or self-care (01) ==
LOC: D.ER 21:21
DX: S93.401A Sprain of unspecified ligament of right ankle, initial encounter (principal); M19.079 Primary osteoarthritis, unspecified ankle and foot; S90.31XA Contusion of right foot, initial encounter; W18.42XA Slipping, tripping and stumbling without falling due to stepping into hole or opening, initial encounter; Y93.9 Activity, unspecified; Y92.9 Unspecified place or not applicable; I10 Essential (primary) hypertension; I25.2 Old myocardial infarction

== ENCOUNTER 2021-01-29 17:21 | Emergency (ER) | payer MEDICARE, BC ==
[~2021-01-29] VITALS: Ht 185.4 cm; Wt 84.1 kg
[~2021-01-29 17:21] MED LIST changes: +REPATHA SY140 MG/1 M SC
[2021-01-29 17:26] VITALS: Ht 185.4 cm; Wt 84.1 kg
[2021-01-29 18:03] LABS: ANION GAP 10.3 mmol/L (8-16); CALCIUM 8.7 mg/dL (8.5-10.1); CARBON DIOXIDE 30.4 mmol/L (21.0-32.0); CREATININE - SERUM 1.1 mg/dL (0.6-1.3); POTASSIUM - SERUM 3.7 mmol/L (3.5-5.1)
[2021-01-29 18:04] LABS: BASOPHILS 0.4 % (0-2); EOSINOPHILS 3.9 % (0-7); HEMATOCRIT 41.7 % (42.0-54.0); HEMOGLOBIN 14.4 g/dL (13.5-17.5); IMMATURE GRANULOCYTES 0.2 % (0-5); LYMPHOCYTE ABS# 1.03 10x3/uL (1.32-3.57); LYMPHOCYTES 18.9 % (15-50); MCH 29.4 pg (26.0-34.0); MCHC 34.5 g/dL (31.0-37.0); MCV 85.1 fL (80.0-100.0); MEAN PLATELET VOLUME 10.3 fL (7.4-10.4); MONOCYTES 8.4 % (2-11); NEUTROPHIL ABS# 3.72 10x3/uL (1.78-5.38); NEUTROPHILS 68.2 % (40-80); PLATELET COUNT 156 10x3/uL (130-400); RDW 12.7 % (11.5-14.5); WBC 5.5 10x3/uL (4.8-10.8)
[2021-01-29 18:09] LABS: ALBUMIN 3.7 g/dL (3.4-5.0); BILIRUBIN - TOTAL 0.75 mg/dL (0.2-1.3); PROTEIN - SERUM 6.7 g/dL (6.4-8.2)
[2021-01-29 20:28] VITALS: BP 126/74
== END 2021-01-29 20:29 | disposition home or self-care (01) ==
LOC: D.ER 17:21
PROVIDERS: Family Medicine
DX: M54.6 Pain in thoracic spine (principal); I71.4 Abdominal aortic aneurysm, without rupture; I10 Essential (primary) hypertension; R07.9 Chest pain, unspecified